=== PATIENT | female | born 1985 | race African-American/Black ===

== ENCOUNTER 2018-07-14 15:22 | Day surgery (SDC) | payer OTHER ==
[2018-07-14] MEDS ORDERED: Lactated Ringer's 1,000 ML IV SCH (16:15)
--- NOTE | 2018-07-14 16:26 | HP ---
DATE OF SERVICE: 07/14/2018 TIME OF EVALUATION: 15:50 LOCATION: LDR in bed #6. This patient has a full handwritten H&P in the physical chart as well, this dictation is secondary. CHIEF COMPLAINT: Vaginal bleeding last p.m. This is a patient of Dr. Nam Gustafson. The patient was seen first in the [facility] by Dr. Talha Guajardo who evaluated the mayank ent and felt that she was stable for labor monitoring here. She was examined transvaginally by Dr. Windy romero and was closed. HISTORY OF PRESENT ILLNESS: This is a 33-year-old -[place] African female 3, para 2 with no history, and no history of previa by her report, who states that she passed some clots last night about coin size She had some cramping and irritability last night and again today. She also states that she had an episode of vaginal bleeding today with a small clot past as well. She denies recent sex, trauma, or any other medical condition. Her EGA is 33 weeks and 2 days. Her EDC is 12/2017. REVIEW OF SYSTEMS: Complete review of systems was checked and is otherwise negative unless specified in the HPI. The only pertinent positive not related to the is that she has a history of d epression on medication. OB HISTORY: She has had 2 term vaginal deliveries. PAST MEDICAL HISTORY: Chronic headaches and "depression." MEDICATIONS: Patient states that she takes sertraline, but she is not sure if that is the actual nam e of the medicine. PAST MEDICAL HISTORY: Also negative for diabetes or asthma. PAST SURGICAL HISTORY: Negative. ALLERGIES: None. SOCIAL HISTORY: Significant for tobacco only. PHYSICAL EXAMINATION: VITAL SIGNS: Her blood pressure is 95/59, pulse is 90 and heart tones are in the 140s. She is afebrile. GENERAL: Clinically, she is in no acute distress. GENITOURINARY: The uterus is soft and nontender. On cervical exam, she is closed, but slightly effa vita with an effacement of about 30%, but the baby still at -2 station. There is no active bleeding n oted, but there is some old blood in the perineal area. There is no evidence of rupture of membranes on exam. On monitor, heart tones are reactive with moderate variability and accelerations. There are no pathological decelerations. There is uterine irritability, but no distinct contraction patter n. ASSESSMENT: This is a 34-year-old -[place] African 3, para 2 with 2 prior vaginal deliveries who is at 33 weeks and 2 days with probable small marginal placental separation presenting of vagina l bleeding. PLAN: 1. Check Rh type. The patient has an Rh positive blood type, confirmed by the record. 2. We will give her IV fluid hydration. 3. I have ordered an OB ultrasound for estimated weight, EGA confirmation, and cervical length . 4. We will continue with monitor for now. 5. If there is evidence of severe abruption or progressive abruption pattern, or evidence of labor, we will administer corticosteroids for lung maturity. 6. I have discussed corticosteroid with her, but as she is not currently laboring, as her cervix is closed, I have decided to hold off at this time. 7. We will likely do prolonged observation in labor and delivery with a plan to discharge her home w hen she is clinically stable.
--- NOTE | 2018-07-14 16:41 | PDOC.EVN ---
Event Note - Event Note Event Note: Sono follow up: Placenta posterior, normal DAMON, EFW 2021 grams; cervix 4cm; breech
[2018-07-14 16:53] VITALS: BMI 23.5
--- NOTE | 2018-07-14 17:03 | PDOC.EVN ---
Event Note - Event Note Event Note: ADDENDUM: record review states HX ampetamine use in past, although I asked her specifically and she denied it. I will order a utox for record.
--- NOTE | 2018-07-14 18:09 | ULT ---
OB ULTRASOUND 07/14/18 HISTORY: 33 week . Patient is experiencing vaginal bleeding. COMPARISON: Not available. FINDINGS: There is a single intrauterine gestation in breech presentation. Cardiac doppler demonstrates h eart tones with a heart rate of 160 beats per minute. The placenta is located posteriorly and i n the fundus without evidence of placenta previa. Amniotic fluid index is at the upper limits of norm al to borderline enlarged at 23 cm. The cervical length measures 4.08 cm. MEASUREMENTS: Biparietal diameter 8.18 cm 32 weeks, 6 days Head circumference 30.01 cm 33 weeks, 2 days Abdominal circumference 28.76 cm 32 weeks, 5 days Femur length 6.21 cm 32 weeks, 1 day The estimated gestational age by ultrasound is 32 weeks and 6 days with an NATHAN on 09/02/18. Gestational by the last menstrual period is 33 weeks and 2 days. The estimated weight by ultras ound is 2020 grams (4 lb. 7 oz.). This represents the 24th percentile for weight. Definite four chamber heart is unable to be delineated on the provided images. Cerebellum is not well visualized due to ossification of head structures and positioning of the head. Urinary b ladder is distended and has a normal appearance. Remaining anatomical structures are not well e valuated on this exam. No obvious anomalies are seen on the provided images. IMPRESSION: 1. Single intrauterine gestation in breech presentation with heart tones documented. Gesta tional age by ultrasound is 32 weeks and 6 days with NATHAN on 09/02/18. 2. The amniotic fluid index is at the upper limits of normal measuring 23.1 cm. 3. Limited evaluation of the anatomical structures on this exam. 4. Placenta is located posteriorly and fundally. No retroplacental hemorrhage is present. There are no findings to suggest placenta previa. POS: [facility]
--- NOTE | 2018-07-14 19:10 | PDOC.EVN ---
Event Note - Event Note Event Note: FHTs reactive, and no contractions. OK for discharge. Awaiting urine tox screen but still says "uncollected". Patient is "refusing to void". I suspect she may be concealing illicit substance use, although she is A&O. Prebatal record already states positive use of ampetamines. If not voiding, I will send home as no evidence of PTL at this time, and no further VB. Ampetamine use already documented in record.
[2018-07-14 20:50] LABS: Amphetamine Not Detected (NotDetected); Barbiturates Screen Not Detected (NotDetected); Benzodiazepine Screen Not Detected (NotDetected); Cocaine Metabolite Screen Not Detected (NotDetected); Medtox Control Line Valid? VALID (VALID); Medtox Reader # READER 1; Methadone Not Detected (NotDetected); Methamphetamine Not Detected (NotDetected); Opiate Screen Not Detected (NotDetected); Oxycodone Screen Not Detected (NotDetected); Phencyclidine (PCP) Not Detected (NotDetected); THC/Cannabinoid Screen Not Detected (NotDetected); Tricyclic Screen Not Detected (NotDetected)
--- NOTE | 2018-07-14 21:46 | PDOC.EVN ---
Event Note - Event Note Event Note: Post discharge note: Lab follow up after release: The patient did leave a urine sample pre-[facility]. Lab check now revealed no illicit substances (clean).
== END 2018-07-14 20:21 | disposition home or self-care (01) ==
LOC: L&D/OP 15:22
PROVIDERS: ATTEND Family Medicine
DX: O46.93 Antepartum hemorrhage, unspecified, third trimester (principal); O99.89 Other specified diseases and conditions complicating pregnancy, childbirth and the puerperium; R51 Headache; Z87.891 Personal history of nicotine dependence; Z3A.33 33 weeks gestation of pregnancy
CPT/HCPCS: 76805; 80306; 96360; 96361; 99284

== ENCOUNTER 2018-08-09 23:48 | Day surgery (SDC) | payer OTHER ==
[2018-08-10 00:12] VITALS: BP 109/71; TEMP 98.5; BMI 21.9
[2018-08-10] MEDS ORDERED: Morphine 10 MG/ML VIAL IM SCH ×2 (00:45)
[2018-08-10] MEDS ORDERED: Ondansetron ODT 8 MG TAB SL SCH (00:45)
--- NOTE | 2018-08-10 03:57 | PRG ---
DATE OF SERVICE: 08/10/2018 OB ER ENCOUNTER PRIMARY OB: Dr. Inder Gustafson. CHIEF COMPLAINT: Pelvic pain. HISTORY OF PRESENT ILLNESS: Patient is a 33-year-old female with an intrauterine at 37 weeks, who is presenting with a two-day onset of pelvic pain. Patient reports that she on Wednesday, horse got loose and she was scared the horse and ran away suddenly. Since that time, patient has be en having sharp pelvic pain, worse with activity and movement such as rolling in bed, walking, liftin g. She reports some mild contractions. Denies leakage of fluid or vaginal bleeding. She denies fev er, fall, headache, chest pain, shortness of breath, nausea, vomiting, diarrhea. She does report shruthi e constipation. She denies any new rashes, hip problems, knee problems, or muscle weakness. She den ies urinary urgency or frequency. PAST MEDICAL HISTORY: Depression. PAST SURGICAL HISTORY: Negative. SOCIAL HISTORY: She has a history of drug abuse early prior to the and a positive drug scr een at her first visit with a subsequent negative screen. Patient denies any use since. Patient hair s report a positive smoking history. Denies alcohol use. ALLERGIES: No known drug allergies. MEDICATIONS: vitamins. OB LABS: Blood type is B positive, antibody screen is negative. She is rubella immune, RPR is nonre active in the first trimester. Hepatitis B surface antigen is negative in the first trimester HIV is nonreactive in the first trimester. Hepatitis panel is negative. Sickle cell screen is negative. GC and chlamydia are negative. REVIEW OF SYSTEMS: Per HPI. PHYSICAL EXAMINATION: VITAL SIGNS: Blood pressure 102/55, heart rate of 85, respiratory rate 18, temperature 98.5. GENERAL: She appears to be in no acute distress. She is alert and oriented, cooperative, and pleasa nt to interact with. HEENT: Head is normocephalic, atraumatic. LUNGS: Clear to auscultation bilaterally. HEART: Regular rate and rhythm. ABDOMEN: Tender to palpation with deviation of the uterus. Cervical exam was attempted, but not evaristo erated per nursing staff. Nurse was able to palpate, these are believed to have cervix is thick and very posterior. EXTREMITIES: Nontender, nonedematous. heart tracing performed for pelvic pain and noted to be baseline in the 130s with moderate long -term variability, positive 15 x 15 accelerations, no decelerations. She has some irritability. ___ __ tocometer with contractions about every 7 to 15 minutes. ASSESSMENT AND PLAN: The patient is a 33-year-old G3, P2 female with an intrauterine at 37 weeks with musculoskeletal pains of . I have explained to the patient this ligament pain t chang painful is not dangerous to the itself. I will be given her 8 mg of morphine IM for temporary pain relief as well as prescription for Tylenol No.3 #6 to go home with patient does have a follow up with Dr. Gustafson tomorrow morning, which she has been encouraged to keep.
== END 2018-08-10 02:36 | disposition home or self-care (01) ==
LOC: L&D/OP 23:48
PROVIDERS: ATTEND Family Medicine
DX: O99.89 Other specified diseases and conditions complicating pregnancy, childbirth and the puerperium (principal); R10.2 Pelvic and perineal pain; Z87.891 Personal history of nicotine dependence; Z3A.37 37 weeks gestation of pregnancy
CPT/HCPCS: 96360; 99283; J2270

== ENCOUNTER 2018-08-23 00:05 | Inpatient (IN) | payer OTHER ==
[2018-08-25] MEDS ORDERED: Diphenoxylate HCl/Atropine Tablet PO PRN (20:13)
[2018-08-25] MEDS ORDERED: Ibuprofen 800 MG TAB PO PRN (20:13)
[2018-08-25] MEDS ORDERED: Ondansetron PF 4 MG/2 ML Vial IVP PRN (20:13)
[2018-08-25] MEDS ORDERED: NS / Oxytocin 40 units/1000ml 1,000 ML IV PRN (20:13)
[2018-08-25] MEDS ORDERED: NS w/ Oxytocin 10 units 500 ML IV SCH ×2 (20:13)
[2018-08-25] MEDS ORDERED: HYDROcodone/Acetaminophen 5/325 mg Tablet PO PRN (20:13)
[2018-08-25] MEDS ORDERED: Methylergonovine 0.2 MG/ML VIAL IM PRN (20:13)
[2018-08-25] MEDS ORDERED: Lidocaine 1% (PF) 30 ML VIAL SC PRN (20:13)
[2018-08-25] MEDS ORDERED: Carboprost 250 MCG/ML AMP IM PRN (20:13)
[2018-08-25] MEDS ORDERED: Misoprostol 200 MCG TAB PR PRN (20:13)
[2018-08-25] MEDS: Lactated Ringer's 1,000 ML IV SCH (20:15)
[2018-08-25 20:42] VITALS: BMI 22.7
[2018-08-25 20:42] LABS: Mean Corpuscular HGB CONC 35.1 g/dL (32.0-36.0); Mean Corpuscular Hemoglobin 32.2 pg (27.0-31.0); Mean Corpuscular Volume 91.8 fL (78.0-98.0); Mean Platelet Volume 8.7 fL (7.4-10.4); Platelet Count 173 thou/uL (130-400); RBC Distribution Width 12.2 % (11.5-14.5); Red Blood Cell (RBC) Count 3.09 mill/uL (4.20-5.40); White Blood Cell (WBC) Count 9.6 thou/uL (4.8-10.8)
[2018-08-25 21:17] LABS: Syphilis Antibody Nonreactive (Nonreactive); Syphilis Antibody Index 0.08 S/CO (<1.00 Non-Reactive)
[2018-08-25 21:27] LABS: Amphetamine Not Detected (NotDetected); Barbiturates Screen Not Detected (NotDetected); Benzodiazepine Screen Not Detected (NotDetected); Cocaine Metabolite Screen Not Detected (NotDetected); Medtox Control Line Valid? VALID (VALID); Medtox Reader # READER 1; Methadone Not Detected (NotDetected); Methamphetamine Not Detected (NotDetected); Opiate Screen Not Detected (NotDetected); Oxycodone Screen Not Detected (NotDetected); Phencyclidine (PCP) Not Detected (NotDetected); THC/Cannabinoid Screen Not Detected (NotDetected); Tricyclic Screen Not Detected (NotDetected)
[2018-08-25 22:49] LABS: HBSAg Index 0.23 S/CO (0-0.99); Hep B Surf Ag Non-Reactive S/CO (NonReactive)
[2018-08-25] MEDS: Misoprostol 100 MCG TAB PO SCH (23:00)
[2018-08-26] MEDS: Butorphanol Tartrate 1 MG/ML VIAL SLOW IVP PRN ×2 (02:47→10:48)
[2018-08-26] MEDS ORDERED: Misoprostol 100 MCG TAB ONE (06:09)
[2018-08-26] MEDS: Misoprostol 100 MCG TAB PO SCH ×2 (06:14→10:14)
[2018-08-26] MEDS ORDERED: Misoprostol 100 MCG TAB PO SCH (06:15)
[2018-08-26] MEDS ORDERED: Penicillin G Potassium 5 MILL.UNITS VIAL ONE (07:00)
[2018-08-26] MEDS ORDERED: Penicillin G Potassium 5 MILL.UNITS in Sodium Chloride 0.9% 100 ML IVPB SCH (08:45)
[2018-08-26] MEDS ORDERED: Penicillin G Potassium 2.5 MILL.UNITS in Sodium Chloride 0.9% 50 ML IVPB SCH (08:45)
[2018-08-26] MEDS: Lactated Ringer's 1,000 ML IV SCH ×3 (09:40→17:45)
[2018-08-26] MEDS ORDERED: Bupivacaine 0.25% HCL 30 ML VIAL ONE (11:11)
[2018-08-26] MEDS ORDERED: Lidocaine 2% MPF 10 ML AMP (For Epidural Use) ONE (11:11)
[2018-08-26] MEDS ORDERED: ePHEDrine/0.9% NaCl/PF SYRINGE 50 mg/10 ml ONE (11:11)
[2018-08-26] MEDS ORDERED: Ketorolac Tromethamine 30 MG/ML VIAL ONE ×2 (11:21→22:14)
[2018-08-26] MEDS ORDERED: diphenhydrAMINE 50 MG/ML VIAL ONE ×2 (11:21→22:02)
[2018-08-26] MEDS ORDERED: Ondansetron PF 4 MG/2 ML Vial ONE ×2 (11:21→21:27)
[2018-08-26] MEDS ORDERED: Dexamethasone 20 MG/5 ML VIAL ONE (11:21)
[2018-08-26] MEDS: Penicillin G 2.5 MILL.units 2.5 MILL.UNITS in Premix Bag 1 BAG IVPB SCH ×2 (13:09→16:40)
[2018-08-26] MEDS ORDERED: Fentanyl 4 mcg/Bup 0.1% Cadd 100 ML ONE (13:46)
[2018-08-26] MEDS ORDERED: diphenhydrAMINE 50 MG/ML VIAL IVP PRN ×3 (14:29→22:19)
[2018-08-26] MEDS ORDERED: Promethazine HCl 25 MG/ML VIAL IM PRN ×3 (14:29→22:19)
[2018-08-26] MEDS ORDERED: Ondansetron PF 4 MG/2 ML Vial IVP PRN ×3 (14:29→22:19)
[2018-08-26] MEDS ORDERED: Eucerin (Mineral Oil/Petrolatum,White) 30 gm Jar TOP PRN ×3 (14:29→22:19)
[2018-08-26] MEDS ORDERED: Lactated Ringer's 500 ML IV PRN ×2 (14:29→14:30)
[2018-08-26] MEDS ORDERED: Acetaminophen 325 MG TAB PO PRN ×2 (14:29→14:30)
[2018-08-26] MEDS ORDERED: Naloxone HCl 0.4 mg/ml Vial IVP PRN ×6 (14:29→22:19)
[2018-08-26] MEDS ORDERED: ePHEDrine/0.9% NaCl/PF SYRINGE 50 mg/10 ml SLOW IVP PRN ×2 (14:29→14:30)
[2018-08-26] MEDS ORDERED: Communication Order-Pharmacy FS SCH ×3 (14:30→22:30)
[2018-08-26] MEDS ORDERED: Fentanyl 4 mcg/Bupivacaine 0.1% Cassette 100 ML EPIDURAL SCH (14:30)
[2018-08-26] MEDS ORDERED: CEFAZOLIN 2 GM/50 ML BAG ONE (21:22)
[2018-08-26] MEDS ORDERED: Bicitra 30 ML UDCUP ONE (21:22)
[2018-08-26] MEDS ORDERED: Oxytocin 10 UNITS/ML VIAL ONE (21:26)
[2018-08-26] MEDS ORDERED: Lidocaine 2% 10 ML INJ ONE (21:26)
[2018-08-26] MEDS ORDERED: Dexamethasone 4 mg/ml Vial ONE (21:27)
[2018-08-26] MEDS ORDERED: Morphine PF 1 MG/ML SYR ONE (21:28)
[2018-08-26] MEDS ORDERED: CEFAZOLIN 2 GM/50 ML BAG IVPB SCH (21:45)
[2018-08-26] MEDS ORDERED: Bicitra 30 ML UDCUP PO SCH (21:45)
[2018-08-26] MEDS ORDERED: L&D-Morphine 4 MG/ML VIAL SLOW IVP PRN (22:19)
[2018-08-26] MEDS ORDERED: Ondansetron HCl/PF 4 MG/2 ML Vial IVP PRN (22:19)
[2018-08-26] MEDS ORDERED: Promethazine HCl 25 MG SUPP PR PRN (22:19)
[2018-08-26] MEDS ORDERED: HYDROmorphone 2 MG/ML VIAL SLOW IVP PRN (22:19)
[2018-08-26] MEDS ORDERED: Naloxone HCl 0.4 mg/ml Vial IV PRN (22:19)
[2018-08-26] MEDS ORDERED: Ketorolac Tromethamine 30 MG/ML VIAL IVP SCH (22:30)
--- NOTE | 2018-08-26 22:40 | PDOC.OPDEL ---
OB Operative/Delivery Note Delivery Dr/Surgeon: Dr. Gustafson Assist: Dr. Ronquillo Pre-Delivery Diagnosis: elective induction Procedure/Post Delivery Dx: primary low transverse CS Weeks gestation: 39 (39w3d) Anesthesia: epidural - Findings A Sex: female - 1 min: 8 - 5 min: 9 - Additional Findings/Plan Placenta delivered: manual removal findings: low transverse hysterotomy without extension, normal uterus Estimated blood loss: 900 mL Compilations/Other Findings: Preoperative Diagnosis: 1)Term intrauterine 2)Non-reassuring heart tones with failure to progress 3)GBS positive Postoperative Diagnosis: 1)Term intrauterine , delivered 2)Non-reassuring heart tones with failure to progress 3)GBS positive s/p 3 doses of penicillin Anesthesia: epidural Indications: The patient is a 33 year old female at 39.3 weeks gestation who presents for a primary due to non-reassuring heart tones. Procedure in Detail: After risks, benefits, and alternatives were explained to the patient, she gave informed consent. Pre-operative antibiotics included Cefazolin 2 gram IV. The patient was taken to the operating room and spinal anesthesia was initiated. She was placed in the supine position with a left tilt and prepped and draped in usual sterile fashion. A Pfannenstiel incision was made with a scalpel and carried down to the level of the fascia which was sharply nicked. The fascial cut was extended bilaterally with Jose scissors. The inferior and superior edges of the cut fascial edges were elevated with Jerome clamps and the underlying rectus muscles were sharply and bluntly dissected free. The recti were divided digitally and retracted manually. The peritoneum was entered bluntly and retracted manually. Bladder blade was placed. A low transverse score was made with the scalpel and the uterus was entered in the midline bluntly. Clear fluid was seen. The hysterotomy was extended manually. The was noted to be vertex with nuchal cord x1, which was reduced. The was easily delivered by fundal pressure. Mouth and nares were bulb suctioned. Cord clamped and cut after 60 second delayed cord clamping and grossly normal female was handed to waiting nurse. Cord blood was obtained. Placenta was manually extracted, found to be intact with 3 vessel cord and sent for pathology. The uterus was externalized and the endometrium was curetted with a dry lap. The bladder blade was replaced and the uterus was closed with a running locking 0-Vicryl followed by 3 figure-of- eight sutures with 0-vicryl for hemostasis. Following this hemostasis was noted. The abdomen was irrigated with saline and suctioned free of clots. Seprafilm was placed on the anterior aspect of the uterus. The uterus was internalized and the hysterotomy was again noted to be hemostatic. The peritoneum was closed with running, non-locking 3-0 vicryl suture. The rectus was inspected and a few small bleeders were cauterized. The fascia was closed with a running non-locking 0-PDS suture. The subcutaneous tissue was irrigated and there were no bleeders. The subcutaneous tissue was approximated with simple interrupted 3-0 vicryl sutures. The skin was approximated with jose and a pressure dressing was placed. All counts were correct. The patient tolerated the procedure well and was taken to the recovery room in stable condition. Time/Date of delivery: 2155 on 08/26/18 Estimated Blood Loss: 900 ml, QBL pending Complications: None Specimens: Cord blood sent to lab for blood type Findings: Grossly normal female infant with apgars of 8 and 9 at 1 and 5 minutes respectively. Grossly normal placenta with 3 vessel cord sent for pathology. Drains: Newman to gravity draining clear urine Post delivery plan: routine recovery <Zara Ronquillo - Last Filed: 08/26/18 22:43> - Additional Findings/Plan Estimated blood loss: 800 mL <Inder Gustafson - Last Filed: 08/28/18 11:16>
[2018-08-26] MEDS ORDERED: Meperidine HCl/PF 25 MG/ML VIAL ONE (23:26)
[2018-08-26] MEDS: Meperidine HCl/PF 25 MG/ML VIAL SLOW IVP PRN (23:28)
[2018-08-27] MEDS ORDERED: Morphine 4 MG/ML VIAL ONE (00:07)
[2018-08-27] MEDS ORDERED: Morphine 4 MG/ML VIAL SLOW IVP PRN (00:09)
[2018-08-27] MEDS ORDERED: diphenhydrAMINE 25 MG CAP PO PRN (00:21)
[2018-08-27] MEDS ORDERED: Bisacodyl 10 MG SUPP PR PRN (00:21)
[2018-08-27] MEDS ORDERED: Meperidine HCl/PF 25 MG/ML VIAL IM PRN (00:21)
[2018-08-27] MEDS ORDERED: Ondansetron PF 4 MG/2 ML Vial IVP PRN (00:21)
[2018-08-27] MEDS ORDERED: NS / Oxytocin 40 units/1000ml 1,000 ML IV SCH (00:21)
[2018-08-27] MEDS ORDERED: HYDROcodone/Acetaminophen 5/325 mg Tablet PO PRN (00:21)
[2018-08-27] MEDS ORDERED: Meperidine HCl/PF 25 MG/ML VIAL ONE (00:27)
[2018-08-27] MEDS: Meperidine HCl/PF 25 MG/ML VIAL SLOW IVP PRN (00:29)
[2018-08-27] MEDS: Penicillin G 2.5 MILL.units 2.5 MILL.UNITS in Premix Bag 1 BAG IVPB SCH ×2 (02:11→02:12)
[2018-08-27] MEDS: Lactated Ringer's 1,000 ML IV SCH ×2 (02:12→05:49)
[2018-08-27] MEDS: Ketorolac Tromethamine 30 MG/ML VIAL IVP PRN ×2 (05:50→12:02)
[2018-08-27 06:21] LABS: Hemoglobin 7.5 g/dL (12.0-16.0); Mean Corpuscular HGB CONC 34.6 g/dL (32.0-36.0); Mean Corpuscular Volume 92.7 fL (78.0-98.0); Platelet Count 150 thou/uL (130-400); RBC Distribution Width 12.1 % (11.5-14.5); Red Blood Cell (RBC) Count 2.35 mill/uL (4.20-5.40); White Blood Cell (WBC) Count 14.5 thou/uL (4.8-10.8)
[2018-08-27] MEDS ORDERED: Lactated Ringer's 1,000 ML IV SCH (06:30)
[2018-08-27] MEDS ORDERED: Adacel (T-DAP) 0.5 ML SYRINGE IM ONE (09:00)
[2018-08-27] MEDS: Simethicone Chewable 80 MG TAB PO PRN ×2 (09:06→20:28)
[2018-08-27] MEDS: Docusate Calcium (SURFAK) 240 MG CAP PO SCH ×2 (09:06→20:28)
[2018-08-27] MEDS: Prenatal Vitamin 1 TAB PO SCH (09:06)
[2018-08-27] MEDS: HYDROcodone/Acetaminophen 5/325 mg Tablet PO PRN ×2 (16:06→20:28)
[2018-08-27] MEDS: Ibuprofen 800 MG TAB PO SCH (20:28)
[2018-08-28] MEDS: Ibuprofen 800 MG TAB PO SCH ×3 (05:55→22:08)
[2018-08-28] MEDS: HYDROcodone/Acetaminophen 5/325 mg Tablet PO PRN ×4 (05:55→23:54)
[2018-08-28] MEDS ORDERED: Ibuprofen 800 MG TAB PO SCH (06:00)
[2018-08-28] MEDS: Docusate Calcium (SURFAK) 240 MG CAP PO SCH ×2 (09:00→22:07)
[2018-08-28] MEDS: Prenatal Vitamin 1 TAB PO SCH (09:01)
[2018-08-28] MEDS: Simethicone Chewable 80 MG TAB PO PRN (19:35)
[2018-08-29] MEDS: HYDROcodone/Acetaminophen 5/325 mg Tablet PO PRN ×4 (06:11→20:46)
[2018-08-29] MEDS: Ibuprofen 800 MG TAB PO SCH ×3 (06:11→20:44)
[2018-08-29 08:22] VITALS: BP 100/61; TEMP 98.5
[2018-08-29] MEDS: Prenatal Vitamin 1 TAB PO SCH (10:02)
[2018-08-29] MEDS: Docusate Calcium (SURFAK) 240 MG CAP PO SCH (10:02)
== END 2018-08-29 21:00 | disposition home or self-care (01) | DRG 787 ==
LOC: L&D 08-25 19:50 → 3SW 08-27 01:13
PROVIDERS: ADMIT Family Medicine; ATTEND Family Medicine
PROC: 10D00Z1 Extraction of Products of Conception, Low, Open Approach (ICD-10-PCS; principal; 2018-08-26)
DX: O76 Abnormality in fetal heart rate and rhythm complicating labor and delivery (principal); O98.82 Other maternal infectious and parasitic diseases complicating childbirth; O64.8XX0 Obstructed labor due to other malposition and malpresentation, not applicable or unspecified; B95.1 Streptococcus, group B, as the cause of diseases classified elsewhere; Z3A.39 39 weeks gestation of pregnancy; Z37.0 Single live birth
CPT/HCPCS: 36415; 51702; 76815; 80053; 80306; 82553; 84484; 85025; 85027; 86780; 86850; 86900; 86901; 87340; 88307; 93005; 94760; J0595; J1100; J1200; J1885; J2001; J2175; J2270; J2274; J2405; J2540; J2590; J7050; S0020

== ENCOUNTER 2018-08-23 20:42 | Day surgery (SDC) | payer OTHER ==
[2018-08-23 21:17] VITALS: BP 103/59; TEMP 97.7; BMI 23.5
--- NOTE | 2018-08-24 06:08 | SS ---
DATE OF ADMISSION: 08/23/2018 DATE OF DISCHARGE: 08/23/2018 LABOR AND DELIVERY TRIAGE NOTE REGULAR PHYSICIAN: Inder Gustafson MD. EVALUATING PHYSICIAN: Asa Vieyra MD. CHIEF COMPLAINT: Contractions at home. HISTORY OF PRESENT ILLNESS: Ms. Dumont is a 33-year-old black G3, P2-0-0-2 with a reported estimated date of confinement of 08/30/2018, who presents complaining of contractions throughout the day at home. She denies rupture of membranes or vaginal bleeding. When I asked how often they were occurring, she said she has not timed them. Her care has reportedly been uncomplicated with Dr. Gustafson. PAST OBSTETRICAL HISTORY: Includes 2 vaginal deliveries at term. PAST MEDICAL HISTORY: None. PAST SURGICAL HISTORY: None. CURRENT MEDICATIONS: vitamins. ALLERGIES: NO KNOWN ALLERGIES. SOCIAL HISTORY: She smokes a half a pack of cigarettes per day. She denies drug use. REVIEW OF SYSTEMS: Denies nausea, vomiting, fevers, chills, vaginal bleeding, or ruptured membranes. PHYSICAL EXAMINATION: VITAL SIGNS: Stable and she is afebrile in triage. ABDOMEN: Soft, nontender, and gravid. PELVIC: On pelvic examination by the labor nurse, her cervix is 1 cm dilated, 60% effaced with a vertex to -2 position. heart rate tracing is reassuring. There are no decelerations. Irregular contractions were seen. ASSESSMENT: 1. 39-week intrauterine . 2. No evidence of active labor at this time. PLAN: The patient will be discharged to home with labor instructions. She was told to keep herself well hydrated at home. Dr. Gustafson had been notified previously of this patient by the labor and delivery nurses. Job ID: [id number]
== END 2018-08-23 21:50 | disposition home or self-care (01) ==
LOC: L&D/OP 20:42
PROVIDERS: ATTEND Family Medicine
DX: O47.1 False labor at or after 37 completed weeks of gestation (principal); O99.333 Smoking (tobacco) complicating pregnancy, third trimester; F17.210 Nicotine dependence, cigarettes, uncomplicated; Z3A.39 39 weeks gestation of pregnancy
CPT/HCPCS: 99282

== ENCOUNTER 2018-08-25 18:34 | Emergency (ER) | payer OTHER ==
[2018-08-25 19:08] LABS: #Eosinphils 0.1 thou/uL (0.0-0.7); #Lymphocytes 1.9 thou/uL (1.20-3.40); #Monocytes 0.6 thou/uL (0.11-0.59); #Neutrophils 7.5 thou/uL (1.40-6.50); %Basophils 0.2 % (0.0-1.0); %Eosinophils 0.9 % (0.0-10.0); %Lymphocytes 18.3 % (21.0-51.0); %Monocytes 5.7 % (0.0-10.0); %Neutrophils 74.8 % (42.0-75.0); Mean Corpuscular HGB CONC 35.2 g/dL (32.0-36.0); Mean Corpuscular Hemoglobin 32.3 pg (27.0-31.0); Mean Corpuscular Volume 91.9 fL (78.0-98.0); Mean Platelet Volume 8.4 fL (7.4-10.4); Platelet Count 175 thou/uL (130-400); RBC Distribution Width 12.1 % (11.5-14.5); White Blood Cell (WBC) Count 10.1 thou/uL (4.8-10.8)
[2018-08-25 19:32] LABS: ALT (SGPT) 8 U/L (8-55); AST (SGOT) 11 U/L (5-34); Albumin 3.1 g/dL (3.5-5.0); Alkaline Phosphatase 309 U/L (40-150); Anion Gap 9 mmol/L (10-20); BUN (Urea Nitrogen) 7 mg/dL (7.0-18.7); Bilirubin, Total 0.4 mg/dL (0.2-1.2); CK (CPK) 59 U/L (29-168); Calc. Creatinine Clearance 0 mL/min (70-130); Carbon Dioxide 24 mmol/L (22-29); Chloride 107 mmol/L (98-107); Estimated GFR-MDRD Greater than 90; Glucose 93 mg/dL (70-105); Potassium 3.6 mmol/L (3.5-5.1); Protein, Total 6.1 g/dL (6.0-8.3); Sodium 136 mmol/L (136-145)
[2018-08-25 19:37] LABS: Troponin I Less than 0.010 ng/mL (< 0.028)
== END 2018-08-25 19:55 | disposition home or self-care (01) ==
LOC: ERS 18:34
DX: O99.89 Other specified diseases and conditions complicating pregnancy, childbirth and the puerperium (principal); R07.89 Other chest pain; O99.343 Other mental disorders complicating pregnancy, third trimester; F32.9 Major depressive disorder, single episode, unspecified; F41.9 Anxiety disorder, unspecified; Z3A.39 39 weeks gestation of pregnancy
CPT/HCPCS: 80053; 82553; 84484; 85025; 93005; 94760

== ENCOUNTER 2018-09-05 14:02 | Observation (INO) | payer OTHER ==
[~2018-09-05 14:02] MED LIST: Iopamidol 370 76% 100 ML VIAL ONE
[2018-09-05 14:55] LABS: #Eosinphils 0.1 thou/uL (0.0-0.7); #Lymphocytes 2.1 thou/uL (1.20-3.40); #Monocytes 0.7 thou/uL (0.11-0.59); #Neutrophils 9.9 thou/uL (1.40-6.50); %Basophils 0.4 % (0.0-1.0); %Eosinophils 0.6 % (0.0-10.0); %Lymphocytes 16.2 % (21.0-51.0); %Monocytes 5.5 % (0.0-10.0); %Neutrophils 77.4 % (42.0-75.0); Hemoglobin 8.3 g/dL (12.0-16.0); Mean Corpuscular HGB CONC 32.5 g/dL (32.0-36.0); Mean Corpuscular Hemoglobin 30.2 pg (27.0-31.0); Mean Corpuscular Volume 92.9 fL (78.0-98.0); Mean Platelet Volume 6.7 fL (7.4-10.4); Platelet Count 403 thou/uL (130-400); RBC Distribution Width 12.1 % (11.5-14.5); Red Blood Cell (RBC) Count 2.76 mill/uL (4.20-5.40); White Blood Cell (WBC) Count 12.8 thou/uL (4.8-10.8)
[2018-09-05 15:17] LABS: ALT (SGPT) 12 U/L (8-55); AST (SGOT) 11 U/L (5-34); Albumin 3.2 g/dL (3.5-5.0); Alkaline Phosphatase 137 U/L (40-150); Anion Gap 11 mmol/L (10-20); BUN (Urea Nitrogen) 10 mg/dL (7.0-18.7); Bilirubin, Total 0.6 mg/dL (0.2-1.2); Calc. Creatinine Clearance 0 mL/min (70-130); Calcium 9.3 mg/dL (7.8-10.44); Carbon Dioxide 21 mmol/L (22-29); Chloride 110 mmol/L (98-107); Estimated GFR-MDRD Greater than 90; Globulin 3.6 g/dL (2.4-3.5); Glucose 85 mg/dL (70-105); Protein, Total 6.8 g/dL (6.0-8.3); Sodium 138 mmol/L (136-145)
[2018-09-05] MEDS ORDERED: Ondansetron PF 4 MG/2 ML Vial ONE (15:40)
[2018-09-05] MEDS ORDERED: Ketorolac Tromethamine 30 MG/ML VIAL ONE (15:40)
[2018-09-05] MEDS ORDERED: Acetaminophen 500 MG TAB ONE (16:09)
--- NOTE | 2018-09-05 16:54 | ULT ---
PELVIC ULTRASOUND: Date: 09/05/18 HISTORY: on 08/26/18. Post pain since this morning. COMPARISON: None. TECHNIQUE: Transabdominal imaging of the pelvis is performed. FINDINGS: Uterus is identified. Endometrium is slightly heterogeneous with a diameter of 1.5 cm. Overall, the u terus measures 8.1 x 15.1 x 10.5 cm. In the lower uterine segment, there is a hypoechoic structure me asuring 8.4 x 7.8 x 5.7 cm. Neither ovary is appreciated. No significant fluid or masses in either adnexa. IMPRESSION: 1. Enlarged uterus compatible with state. 2. Heterogeneous endometrial echotexture which may represent blood products. Correlate clinically fo r retained products of conception. 3. Hypoechoic focus in the lower uterine segment is incompletely evaluated. Postoperative hematoma o r seroma is a consideration. Other etiologies cannot be excluded. Further interrogation with CT may b e beneficial. CT should be performed with oral and IV contrast. POS: [facility]
[2018-09-05] MEDS ORDERED: cefTRIAXone\\ROCEPHIN 1 GM VIAL ONE (17:21)
[2018-09-05 17:41] LABS: Bilirubin Negative (Negative); Blood, Urine Negative (Negative); Clarity CLOUDY (Clear); Glucose, Urine (Dipstick) Negative (Negative); Leukocyte Moderate (Negative); Nitrite Negative (Negative); Protein, Urine (Dipstick) Negative (Neg-Trace); Specific Gravity, Urine 1.016 (1.002-1.036)
[2018-09-05 17:43] LABS: Bacteria/HPF Rare-Few HPF (None Seen); Hyaline Casts/LPF 4-6 HYALINE CAST LPF (0-3 Hyaline); Pathc Cast-AUWi Flag 1.16 (0-2.49); RBC/HPF 0-3 HPF (0-3); WBC/HPF 21-50 HPF (0-3)
[2018-09-05 17:48] LABS: Pregnancy Test - Urine (BHCG) POSITIVE (Negative); Pregu Control Background? CLEAR/WHITE (CLR/WHITE); Pregu Control Bar Appear? YES (CONTROL BAR); Specific Gravity 1.016 (1.002-1.036)
--- NOTE | 2018-09-05 18:41 | CT ---
ABDOMEN AND PELVIC CT SCAN WITH IV CONTRAST: HISTORY: A 33-year-old female with a history of abdominal pain and back pain which began this morning. Recent 1 week ago. FINDINGS: Linear parenchymal changes are noted in both lung bases, evidence for subsegmental atelectasis. Ther e is some minimal scattered free fluid throughout the abdomen and pelvis. The liver, gallbladder, pa ncreas, spleen, and adrenal glands are unremarkable. No overt renal calculus or acute obstruction . There is prominent enlargement of the uterus with some low-attenuation density within the endometr ial cavity, nonspecific, this certainly could represent some residual blood or residual products of c onception. There is a low-attenuation mass in the right lower pelvis measuring approximately 5.9 x 8.2 cm in siz e which corresponds to the hypoechoic mass which was described in the region of the lower uterine seg ment which was incompletely seen on the ultrasound study. Since neither right nor left ovary are dem onstrated, the possibility that this could represent an abnormally enlarged torsed right ovary is cer tainly a consideration. Other possibilities include that of a hematoma or other mass. In addition t o this focus, there is a smaller 2.5 cm diameter low-attenuation focus containing a central calcific or ossific focus approximately 1 cm in diameter. This is also in the right side of the pelvis, somew hat caudal to the larger low-attenuation mass described above. I am not certain as to the etiology o f this. Additionally on the left side of the pelvis, again I cannot separate this definitely from th e uterus. It measures approximately 3.5 cm in size and again is nonspecific. A normal-appearing isaac endix is seen. IMPRESSION: Enlarged uterus containing some low-attenuation density which could possibly represent blood or retai paula products of conception. Scattered intraperitoneal fluid higher than expected for typical ascites which could represent some partially hemorrhagic or other partially complicated fluid. Large, 5.9 x 8.2 cm diameter low-attenuation mass in the right adnexal region, I do not think that this is in the definite lower uterine segment, but I really could not separate it from the lower uterine segment. Given its appearance on prior ultrasound study, the possibility that this could represent an abnormal ly enlarged right ovary. A torsed right ovary is certainly a consideration. Two other abnormal low- attenuation foci, 1 in the right side of the pelvis somewhat caudal to this larger abnormal area cont aining a small focus of increased attenuation density, and a 2nd area of abnormal attenuation density to the left of midline. The etiology of these is uncertain. They could represent small hemorrhagic foci or other small post surgical changes. Findings were initially discussed with Dr. Tobar in the ER and then discussed with Dr. Coronado on the floor, BASTER HAND. CODE CR POS: [facility]
[2018-09-05] MEDS ORDERED: Ondansetron PF 4 MG/2 ML Vial IVP PRN (20:20)
[2018-09-05] MEDS: Lactated Ringer's 1,000 ML IV SCH (21:43)
[2018-09-05] MEDS: Zolpidem Tartrate 5 MG TAB PO PRN (21:43)
[2018-09-05] MEDS: metroNIDAZOLE 500 MG TAB PO SCH (21:43)
[2018-09-06] MEDS: Ibuprofen 800 MG TAB PO PRN ×3 (02:06→20:21)
[2018-09-06] MEDS ORDERED: traMADol HCl 50 MG TAB PO PRN (02:31)
[2018-09-06] MEDS: traMADol HCl 50 MG TAB PO PRN ×2 (02:41→16:23)
--- NOTE | 2018-09-06 04:20 | HP ---
ADMISSION PRIMARY RN CLINICAL RESOURCE: Dr. Inder Gustafson. CHIEF COMPLAINT: Pelvic pain, fever. HISTORY OF PRESENT ILLNESS: The patient is a 33-year-old female who is 10 days postop, status post a primary after a failed induction of labor. The patient reports that she has been having normal recovery until she woke up this morning in severe pain, this was severe enough that she has difficulty getting out of bed and attending to her children. The patient presented to the emergency room, was evaluated and there were concerns by the ER physician that the patient was experiencing endomyometritis and [facility]NER was consulted for evaluation. When coming to evaluate the patient, the patient gave the above history, confirmed the above history and reports that her pain since coming to the emergency room had improved after receiving an initial dose of IV pain medication. The patient reports that she has been feeling sick and just believes that something is not right given the level of pain that she is in. The patient denies any excessive bleeding. She denies drainage from her incision. PAST MEDICAL HISTORY: Negative. PAST SURGICAL HISTORY: Negative. ALLERGIES: NO KNOWN DRUG ALLERGIES. MEDICATIONS: vitamins and ibuprofen. SOCIAL HISTORY: The patient has a positive drug screen for methamphetamine during this . PHYSICAL EXAMINATION: VITAL SIGNS: Blood pressure 116/69, pulse is 69, temperature 100.4 with a prior temperature of 99.7, pain of 10/10. GENERAL: The patient appeared to be very uncomfortable, and appeared to be sick. She was, however, alert and oriented, cooperative, and pleasant to interact with. HEAD: Normocephalic, atraumatic. LUNGS: Clear to auscultation bilaterally. HEART: Regular rate and rhythm. ABDOMEN: Soft. Fundus was exquisitely tender. Her incision was also very tender with some minimal induration, though no erythema, no drainage. IMAGING DATA: Formal ultrasound shows a uterus with heterogeneous endometrium at 1.5 cm and uterus measuring 8.1 x 15.1 x 10.5 cm. Within the what appeared to be lower uterine segment, a hypoechoic structure measuring 8.4 x 7.8 x 5.7 cm. Either ovary was appreciated. On initial impression, this mass appeared to be a blood clot or a seroma with recommendations for CT scan for further evaluation. A CT scan was performed with this mass appearing to be in the posterior fossa and right gutter. The radiologist had some concern given that we could not see the ovaries that this could represent a torsed ovary that was swollen and edematous. LABORATORY DATA: Shows white count of 12.8, hemoglobin of 8.3, hematocrit 25.6, platelets 403,000 with neutrophils, left shift of 77.4%. Creatinine of 0.55, AST of 11, ALT of 12, sodium of 138, potassium 4.0. ASSESSMENT AND PLAN: The patient is a 33-year-old female, postop day 10 with pelvic pain, exquisite fundal tenderness, a mildly elevated white count and elevated temperature of a 100.4 on evaluation and history of previous 10 days prior to presentation for failure to progress. All of these signs point toward an endomyometritis, for which we would plan on treating with Rocephin 1 g every 24 hours and metronidazole 500 mg p.o. 3 times a day. By history, the patient's story is consistent with what could be an ovarian torsion. Reviewing the operative note, Dr. Gustafson did not comment on evaluating the ovaries, but did report that the uterus appeared normal and that the uterus was exteriorized. At the time of our evaluation, the patient reported that her pain was much, much better even though her last dose of pain medication was 3 to 5 hours previous. A diagnostic laparoscopy to evaluate for ovarian torsion was offered, though we did report that the ovary be torsed and swollen was then described, the chances of the ovary would remain viable is fairly low. Given the patient much improved pain and the patient distressed with surgical intervention, the patient has declined surgery at this time. Plan is to continue IV antibiotics for the next 24 to 48 hours and look for improvement on her fundal tenderness. Job ID: [id number]
[2018-09-06 06:25] LABS: Hemoglobin 7.5 g/dL (12.0-16.0); Mean Corpuscular HGB CONC 32.2 g/dL (32.0-36.0); Mean Corpuscular Volume 93.1 fL (78.0-98.0); Mean Platelet Volume 6.8 fL (7.4-10.4); Platelet Count 394 thou/uL (130-400); RBC Distribution Width 12.3 % (11.5-14.5); Red Blood Cell (RBC) Count 2.48 mill/uL (4.20-5.40); White Blood Cell (WBC) Count 11.5 thou/uL (4.8-10.8)
--- NOTE | 2018-09-06 07:34 | PRG ---
DATE OF SERVICE: 09/06/2018 SUBJECTIVE: The patient is a 33-year-old female, who is postop day 11, hospital day 2, who was admitted yesterday for fever, abdominal/pelvic pain, and a pelvic mass. She is being treated presumably for endomyometritis. This morning, the patient reports that she is feeling much better. Her pain is improved significantly. OBJECTIVE: VITAL SIGNS: Blood pressure 97/61, temperature 98.7, pulse of 60, saturating 96% on room air, and T-max was 100.8 at 0200 hours this morning. GENERAL: The patient appears to be in no acute distress. She is resting comfortably with a heating pad. ABDOMEN: Much less tender this morning than on admission yesterday, off pain medication. LABORATORY DATA: CBC shows a white count of 11.5, hemoglobin of 7.5, hematocrit 23.1, and platelets of 394,000. ASSESSMENT AND PLAN: The patient is postop day 11, hospital day 2, for presumed endomyometritis, on Rocephin and Flagyl. The patient's pain has improved significantly. I will continue to treat until she is afebrile for 48 hours. This pelvic mass, there was some concern by Radiology that it could represent a large swollen ovary, torsed. The patient at this time again is reporting the pain is much improved. She did decline the invitation for diagnostic laparoscopy yesterday on arrival given the improvement of her pain by the time we saw her. Job ID: [id number]
[2018-09-06] MEDS: metroNIDAZOLE 500 MG TAB PO SCH ×3 (10:20→22:14)
[2018-09-06] MEDS: Lactated Ringer's 1,000 ML IV SCH (10:22)
[2018-09-06] MEDS: cefTRIAXone\\ROCEPHIN 1 GM in Sodium Chloride 0.9% 100 ML IVPB SCH (17:15)
[2018-09-06] MEDS ORDERED: Docusate Calcium (SURFAK) 240 MG CAP PO PRN (17:54)
[2018-09-06] MEDS ORDERED: Polyethylene Glycol 3350 17 GM Packet PO PRN (17:54)
[2018-09-06] MEDS: Zolpidem Tartrate 5 MG TAB PO PRN (20:29)
[2018-09-06] MEDS ORDERED: Simethicone Chewable 80 MG TAB PO SCH (21:00)
[2018-09-06] MEDS ORDERED: Morphine 4 MG/ML VIAL SLOW IVP PRN (21:00)
--- NOTE | 2018-09-06 21:09 | PDOC.EVN ---
Event Note - Event Note Event Note: S: I was called to evaluate the patient after she started having an increase in pain after having a relatively pain-free day. She has not gotten out of bed except to use the restroom. She reports the pain as similar to menstrual cramps and intermittent. Pain mostly periumbilical and LLQ>RLQ and up to her epigastrum. Had ultram and ibuprofen but felt it did not help much. Has had only 1 BM in 11 days. O: AFVSS Gen: appears uncomfortable, but no acute distress Abd - Soft, no guarding, no rebound but diffusely TTP. A/P: The etiology of her pain is unclear. It is possibly due to constipation and gas given her description but we cannot rule out torsion or other acute process. I discussed the option of proceeding with a diagnostic laparoscopy, as had been previously discussed on admission, to assess for causes of her pain but she still declines at this time. She does not want surgery. I reiterated that if she has an ovarian torsion, waiting could result in loss of that ovary and she understands. She would like to try a dose of morphine to see if it takes the edge off and let her get rest. She agrees to also taking simethicone in case the pain is related to gas, in addition to her Miralax for constipation. I have discussed the importance of the patient ambulating with her nurse. Will continue to monitor.
[2018-09-06] MEDS ORDERED: Morphine 2 MG/ML SYRINGE SLOW IVP PRN (21:13)
[2018-09-06] MEDS ORDERED: Simethicone Chewable 80 MG TAB PO PRN (22:00)
[2018-09-07] MEDS: Lactated Ringer's 1,000 ML IV SCH ×2 (00:25→11:24)
[2018-09-07] MEDS: traMADol HCl 50 MG TAB PO PRN ×3 (05:16→16:05)
[2018-09-07 06:13] LABS: #Eosinphils 0.1 thou/uL (0.0-0.7); #Lymphocytes 2.4 thou/uL (1.20-3.40); #Monocytes 0.8 thou/uL (0.11-0.59); #Neutrophils 7.1 thou/uL (1.40-6.50); %Basophils 0.3 % (0.0-1.0); %Eosinophils 0.6 % (0.0-10.0); %Lymphocytes 23.1 % (21.0-51.0); %Monocytes 7.5 % (0.0-10.0); %Neutrophils 68.4 % (42.0-75.0); Hemoglobin 7.4 g/dL (12.0-16.0); Mean Corpuscular HGB CONC 33.3 g/dL (32.0-36.0); Mean Corpuscular Volume 93.2 fL (78.0-98.0); Mean Platelet Volume 6.5 fL (7.4-10.4); Platelet Count 375 thou/uL (130-400); RBC Distribution Width 12.3 % (11.5-14.5); Red Blood Cell (RBC) Count 2.37 mill/uL (4.20-5.40); White Blood Cell (WBC) Count 10.4 thou/uL (4.8-10.8)
--- NOTE | 2018-09-07 09:07 | PRG ---
DATE OF SERVICE: 09/07/2018 SUBJECTIVE: The patient received one dose of morphine last night and required no pain medications overnight. She has not yet ambulated. This morning she received her dose of ultram and reports that she still occasionally has some pain. She is passing gas, but she has not yet has bowel movements. She has tolerated p.o. without difficulty. PHYSICAL EXAMINATION: VITAL SIGNS: Blood pressure 112/57, pulse 59, respiratory rate 18, temperature 98.8. GENERAL: Awake, alert, in no acute distress. CHEST: Nonlabored. ABDOMEN: Soft. Mildly tender to palpation. No guarding, no rebound. Incision well approximated without any signs of infection. LABORATORY DATA: WBC 10.4, hemoglobin 7.4, hematocrit 22.1, platelets 375,000. ASSESSMENT AND PLAN: A 33-year-old postoperative day #12, following , who was admitted for fever and pain. Her last fever was at 0200 on 09/06/2018, she has been afebrile since. She did have a significant pain last night and was offered a diagnostic laparoscopy, but she declined. She got one dose of morphine and was able to sleep through the night without complaints. The patient reports some pain this morning, but does not appears to be as severe as previously. I have ordered the patient to ambulate four times a day. She will continue Miralax, as she still has not had a BM. She reports that if she starts having pain again like last night, she may be more amenable to surgery. I have made her n.p.o. and she will notify the nurse if she wants to discuss this further. Job ID: [id number] MTDD
--- NOTE | 2018-09-07 09:51 | PDOC.EVN ---
Event Note - Event Note Event Note: Here to re-evaluate patient. Report given to me this AM by Dr. Vallejo. 33 yo BF now POD#12 for 1* C/s by Dr. Gustafson for distress. Presented 09/05 c/o abdominal pain. CT showed 5.9x 8.2 cm mass, hematoma vs. torsion. Of note, pt refused exploratory surgery on admit, continues to refuse surgery at this time. Has been on Rocephin and Flagyl since admit. Currently NPO. PEx VSS, AF since admit. BP= 126/60, P= 70, Tnow= 99.8. Continues to c/o pain despite MS04 and Tramadol. Abdomen is nondistended and soft. She does have tenderness to deep palpation LLQ. Wound is clean. Discussed pt's clinical situation with her at length. Plan; will repeat imaging to reasses possibility of torsion and discuss again with pt. after this is done.
[2018-09-07] MEDS: metroNIDAZOLE 500 MG TAB PO SCH ×3 (10:17→21:10)
--- NOTE | 2018-09-07 12:45 | ULT ---
PELVIS ULTRASOUND: 09/07/2018 HISTORY: Post . The patient is 12 days . Abnormal prior pelvic ultrasound. COMPARISON: 09/05/2018 FINDINGS: The uterus remains enlarged but does measure smaller in size compared to the prior study, measuring 1 3.3 cm x 7.9 x 10.3 cm, again likely related to state. The endometrial stripe remains thi ckened, measuring 2.3 cm. Again noted is heterogeneous material seen within the endometrial canal, w hich, again, may be related to blood products and/or retained products of conception. The previously noted mass in the lower aspect of the pelvis is again seen, demonstrating a heterogene ous appearance. A normal appearing right ovary is not visualized, but there is a mass seen in the ri ght adnexal region/right aspect of the pelvis, which is closely associated with the lower uterine seg ment. I am unsure if this is related to a mass in the uterus or whether this represents an ovarian m ass or an enlarged, heterogeneous uterus. This mass-like structure measures 7.5 cm x 5.6 cm x 5.6 cm . There is a closely adjacent additional heterogeneous structure also seen in the right adnexa, lamont uring 2.7 cm x 2.1 cm x 2.4 cm. Again, a normal appearing right ovary is unable to be visualized. N o flow is detected within this mass on color-flow and Doppler evaluation. What is thought to be the left ovary is visualized but it is also enlarged and measures 6.3 cm x 3 cm x 2.7 cm. Doppler evaluation within this structure also demonstrates arterial flow. No free fluid is seen in the cul-de-sac. IMPRESSION: 1. Enlarged uterus likely related to state. Heterogeneous material is again seen within the endometrial canal, which, again, may be related to hemorrhage and/or retained products of concept ion. 2. Heterogeneous and predominantly hypoechoic, mass in the lower pelvis, in the region of the lower uterine segment and in the right adnexal region. The exact origin of this mass is unable to be delin eated on sonographic evaluation; however, this is overall stable compared to the prior examination. No flow is seen within this structure on color-flow evaluation. The exact etiology is also unable to be determined based on sonographic evaluation. A normal ovary is not visualized. Ovarian torsion co uld not be entirely excluded, but this structure had a more cystic structure on recent CT exam. MRI p bakari may be beneficial for further evaluation. 3. Enlarged left ovary with arterial flow documented. The left ovary was not visualized on the prio r exam. 4. Additional heterogeneous, mass-like structure is seen in the right adnexal region. The exact luli ology for this structure is uncertain. This was visualized on CT pelvis with an hyperdense area pres ent. I am unsure if this represents calcification. Area of hemorrhage and hematoma within the right adnexal region is a possibility. No free fluid is seen on this examination. POS: [facility]
--- NOTE | 2018-09-07 13:12 | PDOC.EVN ---
Event Note - Event Note Event Note: USG disctated by Dr. Sprague and reviewed with Dr. Ryan: 7.5 x 5.6 cm mass in R pelvis, no flow seen but not enlarged from previous scan. VSS, AF 1 BM since C/S. Lab this AM: WBC+ 10.4, H&H= 7.4/, plts= 375K. Will advance diet and continue Tramadol for pain. Encouraged ambulation and added MOM and Dulcolax. Cont. ABX. Will proceed with MRI if sxs. persist.
[2018-09-07] MEDS: Bisacodyl 5 MG TAB PO PRN (13:21)
[2018-09-07] MEDS: Milk Of Magnesia 30 ML UDCUP PO PRN (13:24)
[2018-09-07] MEDS: cefTRIAXone\\ROCEPHIN 1 GM in Sodium Chloride 0.9% 100 ML IVPB SCH (14:48)
[2018-09-07] MEDS: Ibuprofen 800 MG TAB PO PRN (14:48)
--- NOTE | 2018-09-07 20:04 | PDOC.EVN ---
Event Note - Event Note Event Note: Leadership Development Instructor note: D/W Dr Vieyra, AM . Clinically better, so we will hold off on MRI as it will likley not change current care. Feels better after BM today was induced with dulcolax. Continue Flagyl and Rocephin with likely DC to home tomorrow with resono in 2 weeks. Hct today was 22. Afebrile.
--- NOTE | 2018-09-07 20:59 | PRG ---
DATE OF SERVICE: 09/07/2018 ON-CALL CLIENT TECHNOLOGIES SPECIALIST NOTE LOCATION: Bed 337 on . In brief, I reviewed the patient's care with Dr. Vieyra, who was on-call today prior to my arrival at 8:00 p.m. This patient was admitted 2 days ago and is roughly now about 12 days post with what a CT and ultrasound revealed to be a likely perez-uterine hematoma. I interviewed and saw the patient at bedside. Her abdomen is soft, nontender, and nondistended. She states that today she has had 3 bowel movements after milk of magnesia and dulcolax. She states that she has not had a bowel movement since delivery (12 days). She states that the pain immediately resolved with these bowel movements. She states that she feels "100% better." I discussed with her the finding on the CT and the ultrasound and told her that we could likely follow that up in the future with just a repeat ultrasound. I believe that the patient's pain, which was her presenting symptom, was related to the bowel impaction. On physical exam, she is in no acute distress. Abdomen is soft and nontender. Incision is clean, dry, and intact with Steri-Strips. There is no evidence of wound infection or skin cellulitis. ASSESSMENT: This is a patient, who is postop day #12 on Rocephin and Flagyl currently with an incidental finding of a pelvic hematoma, who now feels better after a bowel movement. PLAN: 1. Continue antibiotics for now. 2. We will likely send the patient home tomorrow as she is clinically improved. 3. She can have an outpatient followup ultrasound to track the status of the pelvic hematoma in about 2 to 3 weeks. Job ID: [id number]
[2018-09-07] MEDS: Zolpidem Tartrate 5 MG TAB PO PRN (21:10)
[2018-09-08] MEDS: traMADol HCl 50 MG TAB PO PRN (01:34)
[2018-09-08] MEDS: Lactated Ringer's 1,000 ML IV SCH (02:30)
[2018-09-08] MEDS: Ibuprofen 800 MG TAB PO PRN (04:37)
[2018-09-08] MEDS: Milk Of Magnesia 30 ML UDCUP PO PRN (04:57)
[2018-09-08] MEDS: Bisacodyl 5 MG TAB PO PRN (04:57)
[2018-09-08 05:47] VITALS: TEMP 98.6
[2018-09-08 08:15] VITALS: BP 107/59
--- NOTE | 2018-09-08 08:52 | DIS ---
DATE OF ADMISSION: 09/05/2018 DATE OF DISCHARGE: 09/08/2018 LOCATION: , the patient is in room 337. LENGTH OF STAY: 3 to 4 days. PRINCIPAL DIAGNOSES: 1. Postop from a primary from Dr. Gustafson with abdominal pain. 2. Suspected periuterine hematoma. 3. Extreme constipation. HOSPITAL COURSE: In brief, this patient was evaluated by Dr. Helm, who admitted the patient. This patient is the patient of Dr. Gustafson. She presented with pelvic pain and fever initially. The patient is a 33-year-old female, who was 10 days postop when first seen, who is status post a primary after a failed induction of labor. She denied any excessive bleeding or drainage from the incision. She stated that she was having severe abdominal pain when she presented. When she was seen in the emergency room, there was some concern that the patient was experiencing endometritis, so ASSOCIATE SALES REPRESENTATIVE was consulted. On physical exam, she had a temperature max of 100.4 with a prior temperature of 99.7. On 09/05/2018, an abdominopelvic CT was obtained, which showed an enlarged uterus with some low-attenuation density, which could possibly represent blood or retained products of conception. There was also a large 6 x 8 cm diameter low-attenuation mass in the right adnexa, that was unsure if it was or not related to the lower uterine segment. As stated in that report, "Given its appearance on prior ultrasound, the possibility that this could represent an abnormally enlarged right ovary, a torsed right ovary, is certainly a consideration". Clinically, the patient did not appear to have an ovarian torsion. On history reviewed, the patient had not had a bowel movement since the day of delivery, and so Dr. Vieyra proceeded to give the patient milk of magnesia and Dulcolax with a resulting bowel movement on 09/07/2018. The patient had three bowel movements and states that her pain "immediately went away". On laboratory assessment, her initial white blood cell count was 12.8, and on 09/07/2018, at 0554 hours, white blood cell count was 10.4. Hematocrit value was initially 25.6, and then repeat value was 23.1 and 22.1. On initial laboratory assessment, she had AST and ALT that were both normal with a creatinine of 0.55. When the patient was admitted, she was placed on ceftriaxone and Flagyl for suspected metritis. When I evaluated the patient on 09/07/2018, as well as the day of discharge, which was 09/08/2018, she had been afebrile. T-max was on 2017, at 0800 hours, which was 99.8. On physical exam on the day of discharge, the patient's abdomen was soft and nontender with no palpable tenderness elicited. Incision was clean, dry, intact, and sutured. As the patient felt clinically better after her bowel movement, with a lack of bowel movement since delivery, it was felt that the patient's pain was likely due to her extreme constipation. The patient's unclear adnexal/uterine mass will be followed up as an outpatient with a repeat ultrasound in 2 to 3 weeks to track progress and resolution. At the time of evaluation, it did not appear that the patient was surgical as the physical exam did not support torsion or acute intraperitoneal process. This finding on CT and imaging likely represents an organized hematoma , but will require ultrasound followup. Job ID: [id number] [facility]
[2018-09-08] MEDS: metroNIDAZOLE 500 MG TAB PO SCH (10:02)
== END 2018-09-08 13:30 | disposition home or self-care (01) ==
LOC: ERS 14:02 → INTOOBSV 17:30 → 3SW 17:30
PROVIDERS: ADMIT Obstetrics & Gynecology; ATTEND Obstetrics & Gynecology
DX: R10.2 Pelvic and perineal pain (principal); R50.9 Fever, unspecified; K59.09 Other constipation; R19.00 Intra-abdominal and pelvic swelling, mass and lump, unspecified site; Z79.899 Other long term (current) drug therapy
CPT/HCPCS: 36415; 74177; 76856; 80053; 81003; 81015; 81025; 85025; 85027; 96361; 96365; 96366; 96375; 96376; G0378; J0696; J1885; J2270; J2405; J7050

== ENCOUNTER 2019-12-07 18:46 | Emergency (ER) | payer SELFPAY ==
[2019-12-07 19:33] LABS: #Eosinphils 0.1 thou/uL (0.0-0.7); #Lymphocytes 1.9 thou/uL (1.20-3.40); #Monocytes 0.5 thou/uL (0.11-0.59); #Neutrophils 5.9 thou/uL (1.40-6.50); %Basophils 0.5 % (0.0-1.0); %Eosinophils 0.8 % (0.0-10.0); %Lymphocytes 22.9 % (21.0-51.0); %Monocytes 5.5 % (0.0-10.0); %Neutrophils 70.4 % (42.0-75.0); Mean Corpuscular HGB CONC 34.4 g/dL (32.0-36.0); Mean Corpuscular Hemoglobin 31.7 pg (27.0-31.0); Mean Corpuscular Volume 92.2 fL (78.0-98.0); Platelet Count 182 thou/uL (130-400); RBC Distribution Width 12.2 % (11.5-14.5); Red Blood Cell (RBC) Count 3.48 mill/uL (4.20-5.40); White Blood Cell (WBC) Count 8.4 thou/uL (4.8-10.8)
[2019-12-07] MEDS ORDERED: Acetaminophen 500 MG TAB ONE (19:44)
[2019-12-07] MEDS ORDERED: Ketorolac Tromethamine 30 MG/ML VIAL ONE (20:01)
--- NOTE | 2019-12-07 21:53 | ULT ---
PELVIC ULTRASOUND: 12/07/19 HISTORY: Positive HCG. Bleeding. COMPARISON: CT examination of 09/05/18 which was a exam. An ultrasound was also performed that day. Real time imaging of the pelvis was obtained both transabdominally as well as with an endovaginal pro be. The uterus is enlarged. It measures 6 x 9.5 x 12.6 cm. Endometrium is heterogeneous and thickened . No intrauterine gestational sac is identified. The left ovary shows a small follicle. The right ovary is normal in size. Interposed between the righ t ovary and uterus is a solid appearing mass fairly well circumscribed measuring 5.2 cm. This was act ually present on the previous ultrasound examination. It probably represents some type of pedunculate d fibroid. IMPRESSION: 1. Very heterogeneous appearance to the endometrium of the uterus probably representing blood, r esidual products could be present. I do not see a definite gestational sac or pole although the re may be what is distorted sac in the lower uterine segment. 2. Right adnexal mass stable in appearance as compared to a previous ultrasound study. Probably a pedunculated fibroid. Findings were discussed with Dr. Oneal. POS: [facility]
[2019-12-07] MEDS ORDERED: Misoprostol 200 MCG TAB PO SCH (22:15)
== END 2019-12-07 22:57 | disposition home or self-care (01) ==
LOC: ERS 18:46
DX: O03.4 Incomplete spontaneous abortion without complication (principal); F41.9 Anxiety disorder, unspecified; F32.9 Major depressive disorder, single episode, unspecified; F17.210 Nicotine dependence, cigarettes, uncomplicated
CPT/HCPCS: 36415; 76856; 84702; 85025; 86900; 86901; 96374; J1885

== ENCOUNTER 2020-09-02 01:30 | Inpatient (IN) | payer MEDICAID, SELFPAY ==
--- NOTE | 2020-09-02 02:29 | HP ---
CHIEF COMPLAINT: Transfer from [facility], abdominal pain, positive test. HISTORY OF PRESENT ILLNESS: Ms. Dumont is a 35-year-old black G5, P3, AB1 with a certain last menstrual period of July 12, 2020, who presents complaining of a 1-week history of abdominal pain with acute sharp pain noted earlier today. She states she felt a popping sensation. She was brought to [facility] by EMS and reportedly had an episode of hypotension in the ambulance. She was evaluated at [facility] where she was found to have a positive test and an ultrasound that showed no evidence of an intrauterine . Due to concern of ectopic , she was transferred here. PAST OBSTETRICAL HISTORY: Includes one previous section. The rest of her other two deliveries were by vaginal delivery. She states that she has had chlamydia in the past. She states she has also had one miscarriage. PAST MEDICAL HISTORY: None. PAST SURGICAL HISTORY: as above. CURRENT MEDICATIONS: None. ALLERGIES: NO KNOWN ALLERGIES. SOCIAL HISTORY: She states she smokes one package of cigarettes per day. She denies illicit drug use or alcohol. PHYSICAL EXAMINATION: VITAL SIGNS: Blood pressure in PACU is 105/62. Pulse is 88. GENERAL: The patient is sobbing, complaining of pain. CHEST: Clear to auscultation. CARDIOVASCULAR: Regular rate and rhythm. ABDOMEN: Mildly distended. There is both guarding and rebound noted on abdominal exam. PELVIC: Deferred. LABORATORY DATA: White count 13.6, hemoglobin and hematocrit 9.4 and 27.7, platelet count 185,000. Quantitative beta-hCG is 2791. Pelvic ultrasound shows an empty uterus with fluid in the cul-de-sac. No discrete pelvic masses are described. ASSESSMENT: 1. Acute abdominal pain, now with guarding and rebound. 2. Clinical scenario suspicious for ruptured ectopic . PLAN: In view of the patient's previous pelvic surgery and her low hemoglobin at this time with suspected hemoperitoneum, decision at this time is to proceed with a mini lap and exploration. The risks of the procedure including anesthesia, bleeding, infection, as well as damage to adjacent organs requiring repair removal or transfusion were discussed with her in detail, and she wishes to proceed. Job ID: [id number] [facility]
[2020-09-02] MEDS ORDERED: diphenhydrAMINE 25 MG CAP PO PRN (03:08)
[2020-09-02] MEDS ORDERED: Promethazine HCl 25 MG/ML VIAL SLOW IVP PRN (03:08)
[2020-09-02] MEDS ORDERED: Ondansetron HCl/PF 4 MG/2 ML Vial IVP PRN (03:08)
[2020-09-02] MEDS ORDERED: Promethazine HCl 25 MG/ML VIAL IM PRN ×3 (03:08→05:09)
[2020-09-02] MEDS ORDERED: diphenhydrAMINE 50 MG/ML VIAL IM PRN (03:08)
[2020-09-02] MEDS ORDERED: HYDROmorphone 10 mg/100 ml CADD IVPB PRN (03:08)
[2020-09-02] MEDS ORDERED: HYDROmorphone 2 MG/ML VIAL SLOW IVP PRN (03:08)
[2020-09-02] MEDS ORDERED: Zolpidem Tartrate 5 MG TAB PO PRN (03:08)
[2020-09-02] MEDS ORDERED: diphenhydrAMINE 50 MG/ML VIAL IVP PRN (03:08)
[2020-09-02] MEDS ORDERED: PACU-Morphine 4MG/ML VIAL SLOW IVP PRN (03:08)
[2020-09-02] MEDS ORDERED: Ondansetron PF 4 MG/2 ML Vial IVP PRN ×2 (03:08→05:09)
[2020-09-02] MEDS ORDERED: Naloxone HCl 0.4 mg/ml Vial IV PRN (03:08)
[2020-09-02] MEDS ORDERED: Communication Order-Pharmacy FS SCH (03:15)
[2020-09-02] MEDS ORDERED: Fentanyl 100 MCG/2 ML VIAL ONE ×2 (03:42→03:52)
--- NOTE | 2020-09-02 04:33 | OP ---
DATE OF PROCEDURE: 09/02/2020 PREOPERATIVE DIAGNOSIS: Suspected ruptured ectopic . POSTOPERATIVE DIAGNOSIS: Ruptured ectopic of the right distal fallopian tube. PROCEDURES: 1. Exploratory mini laparotomy. 2. Right distal salpingectomy. DIESEL MAINTENANCE TECHNICIAN SURGEON: Elvia Lopez MD, resident physician. ESTIMATED BLOOD LOSS: 600 to 800 mL. PROPHYLAXIS: Two grams Ancef prior to skin incision. FINDINGS: 1. 600 to 800 cc hemoperitoneum with multiple blood clots from the pelvis. 2. Ruptured distal right fallopian tube with active bleeding. COMPLICATIONS: None. TECHNIQUE IN DETAIL: After good general anesthesia was achieved, the patient was prepped and draped in the usual sterile fashion after placement of the Newman in the supine position. A small transverse incision was made two fingerbreadths above the symphysis pubis in the area of a previous section scar. The abdomen was entered in layers. Once the peritoneum was opened, copious amount of blood was encountered. This was suctioned, and there was approximately 600 to 800 cc of blood removed along with blood clot deep in the pelvis. Once the blood had been removed, the attention was then turned deep in the pelvis. The uterus was small and normal in size, shape, and contour. The left adnexa were normal in appearance with normal fallopian tube and normal ovary. On the right side, in the distal 3rd, the tube was ruptured and was actively bleeding. No specific ectopic was identified, but there were multiple clots removed from the pelvis. Attention was turned to the right fallopian tube. Paired Butch clamps were placed below the ruptured tube, and this area was excised. The mesosalpinx was then reapproximated using two sutures of Vicryl followed by freehand ties. Good hemostasis was noted after removal of the ruptured tube. The pelvis was thoroughly irrigated with normal saline, and the pelvis was then reinspected. No evidence of active bleeding was seen. Once the abdomen was completely irrigated and hemostasis was secured, the peritoneum was reapproximated using a running locking suture of Vicryl. The rectus muscles were made dry using Bovie coagulation technique. The fascia was closed using a single suture of #1 Vicryl brought from the left side to the right side. The subcutaneous tissue was thoroughly irrigated and made dry using Bovie coagulation technique. The skin was closed with metal jose. Sponge, lap, and needle counts were correct. The patient tolerated the procedure well and was taken to the recovery room in good condition. Job ID: [id number] MTDD
[2020-09-02] MEDS ORDERED: HYDROcodone/Acetaminophen 5/325 mg Tablet PO PRN ×2 (05:09)
[2020-09-02 05:33] VITALS: BMI 19.5
[2020-09-02] MEDS: Ketorolac Tromethamine 30 MG/ML VIAL IVP SCH ×3 (06:25→17:31)
[2020-09-02] MEDS: Lactated Ringer's 1,000 ML IV SCH ×3 (06:31→23:13)
[2020-09-02] MEDS: Sodium Chloride 0.9% 1,000 ML IV SCH ×3 (06:31→23:14)
[2020-09-02 08:01] LABS: Platelet Count 150 thou/uL (130-400)
[2020-09-02] MEDS ORDERED: FLU VACC QS2020-21(6MOS UP)/PF 60 MCG/0.5 ML SYRINGE IM ONE (09:00)
[2020-09-02] MEDS ORDERED: Glycopyrrolate 0.2 MG/ML 5 ML SYRINGE ONE (10:34)
[2020-09-02] MEDS ORDERED: Dexamethasone 20 MG/5 ML VIAL ONE (10:34)
[2020-09-02] MEDS ORDERED: Ketorolac Tromethamine 30 MG/ML VIAL ONE (10:34)
[2020-09-02] MEDS ORDERED: Rocuronium Bromide 10 MG/ML (10ML VIAL) ONE (10:34)
[2020-09-02] MEDS ORDERED: Ondansetron PF 4 MG/2 ML Vial ONE (10:34)
[2020-09-02] MEDS ORDERED: PROPOFOL 200 MG/20 ML VIAL ONE (10:34)
[2020-09-02] MEDS ORDERED: Lidocaine 1% PF 5 ML VIAL ONE (10:34)
[2020-09-02] MEDS ORDERED: traMADol HCl 50 MG TAB PO PRN (16:16)
[2020-09-02] MEDS ORDERED: Acetaminophen 500 MG TAB PO PRN (16:17)
[2020-09-02] MEDS ORDERED: Morphine 4 MG/ML VIAL SLOW IVP PRN (16:18)
[2020-09-02] MEDS ORDERED: Morphine 4 MG/ML VIAL SLOW IVP SCH (16:30)
[2020-09-02] MEDS: traMADol HCl 50 MG TAB PO PRN ×2 (18:18→22:20)
[2020-09-03] MEDS: Ketorolac Tromethamine 30 MG/ML VIAL IVP SCH ×2 (00:17→06:42)
[2020-09-03] MEDS: traMADol HCl 50 MG TAB PO PRN ×4 (02:40→15:27)
[2020-09-03] MEDS ORDERED: Simethicone Chewable 80 MG TAB PO PRN (03:02)
[2020-09-03] MEDS: Sodium Chloride 0.9% 1,000 ML IV SCH (05:08)
[2020-09-03] MEDS: Lactated Ringer's 1,000 ML IV SCH ×2 (05:08→09:39)
[2020-09-03] MEDS: Ibuprofen 600 MG TAB PO SCH ×2 (07:39→14:12)
[2020-09-03] MEDS: Acetaminophen 500 MG TAB PO SCH ×2 (07:41→14:13)
--- NOTE | 2020-09-03 07:54 | PRG ---
DATE OF SERVICE: 09/03/2020 SUBJECTIVE: The patient is postop day 1, status post exploratory laparotomy and salpingectomy for a ruptured ectopic . The patient has been transitioned over to p.o. tramadol yesterday from a Dilaudid INTERNET SOURCER pump and is doing well. She has been in addition receiving IV Toradol. The patient reports she is tolerating a diet and she has not passed gas yet and has voiding on her own. OBJECTIVE: VITAL SIGNS: This morning, blood pressure is 99/57, temperature 97.9, pulse of 54, and respiratory rate of 16. GENERAL: She appears to be in no acute distress. She is alert, oriented, cooperative, and pleasant to interact with. HEENT: Head is normocephalic and atraumatic. Incision is clean, dry, and intact with jose 8 o'clock. LABORATORY DATA: Hemoglobin and hematocrit yesterday morning were 8 and 24 with a platelet count of 150,000. ASSESSMENT AND PLAN: The patient is postop day 1, status post exploratory laparotomy with salpingectomy for a ruptured ectopic . By report, she has lost about 600 to 800 mL of blood. Will be repeating a CBC this morning. Will continue in-house care and anticipate discharge tomorrow. I will be transitioning the patient off IV Toradol to p.o. ibuprofen. Job ID: [id number]
[2020-09-03 11:32] VITALS: BP 104/50
[2020-09-03 14:03] LABS: Hemoglobin 6.7 g/dL (12.0-16.0); Platelet Count 125 thou/uL (130-400)
[2020-09-03 15:55] VITALS: TEMP 98
--- NOTE | 2020-09-04 01:57 | DIS ---
DATE OF ADMISSION: 09/02/2020 DATE OF DISCHARGE: 09/03/2020 DIAGNOSES: 1. Ruptured ectopic . 2. Acute blood loss anemia. PROCEDURES: 1. Exploratory laparotomy with right salpingectomy. 2. Transfusion 1 unit of packed red blood cells. HOSPITAL COURSE: The patient presented to the emergency department with sharp abdominal pain. She arrived by ambulance and had an episode of hypotension in the ambulance. She was found to have an acute abdomen and was taken to the operating room for the above-mentioned procedure. She was admitted and had routine postop care. On postop day #1, the patient was requesting to go home and was meeting all milestones. She was found to be anemic with a hemoglobin of 6.7 and agreed to transfusion of 1 unit of packed red blood cells. She remained asymptomatic with normal vital signs, and following her transfusion, she was ready to go home and was discharged home. MEDICATIONS: 1. Ultram 50 mg one tab p.o. q.4 hours p.r.n. pain, #20, no refills. 2. Ibuprofen 800 mg p.o. q.8 hours p.r.n. pain, #30, one refill. 3. Iron b.i.d. FOLLOWUP: Follow up with Dr. Gustafson for staple removal and for postop care or with [facility]. INSTRUCTIONS: Return or call with significant pain issues, bleeding, fever, or other concerns. Job ID: [id number]
[2020-09-04] MEDS ORDERED: Ferrous Sulfate 325 MG TAB PO SCH (08:00)
== END 2020-09-03 18:45 | disposition home or self-care (01) | DRG 817 ==
LOC: SDC 01:30 → 3SE 01:31
PROVIDERS: ADMIT Obstetrics & Gynecology; ATTEND Obstetrics & Gynecology
PROC: 0UB50ZZ Excision of Right Fallopian Tube, Open Approach (ICD-10-PCS; principal; 2020-09-02)
PROC: 0W9J0ZZ Drainage of Pelvic Cavity, Open Approach (ICD-10-PCS; 2020-09-02)
PROC: 30233N1 Transfusion of Nonautologous Red Blood Cells into Peripheral Vein, Percutaneous Approach (ICD-10-PCS; 2020-09-03)
DX: O00.101 Right tubal pregnancy without intrauterine pregnancy (principal); K66.1 Hemoperitoneum; D62 Acute posthemorrhagic anemia
CPT/HCPCS: 36415; 36430; 85014; 85018; 85049; 86850; 86900; 86901; 88302; J1100; J1885; J2405; J2704; J3010; P9016

== ENCOUNTER 2020-09-04 09:14 | Emergency (ER) | payer MEDICAID, SELFPAY ==
[2020-09-04] MEDS ORDERED: Metoclopramide 10 MG/10 ML UDCUP ONE (09:48)
[2020-09-04] MEDS ORDERED: diphenhydrAMINE 50 MG/ML VIAL ONE (09:48)
[2020-09-04] MEDS ORDERED: Metoclopramide HCl 10 MG/2 ML VIAL ONE (09:48)
--- NOTE | 2020-09-04 10:12 | CT ---
CT BRAIN WITHOUT CONTRAST: Date: 09/04/2020 HISTORY: Headache and leg numbness. FINDINGS: Comparison made with exam of 11/07/2019. No evidence of acute infarct, hemorrhage, midline shift, or abnormal extra-axial fluid collections ar e seen. The ventricular size is normal and the basilar cisterns are patent. The bony calvarium is int act. The visualized paranasal sinuses and mastoid air cells are well aerated. IMPRESSION: No CT evidence of acute intracranial process. POS: OFF
[2020-09-04] MEDS ORDERED: Ketorolac Tromethamine 30 MG/ML VIAL ONE (10:27)
[2020-09-04 11:14] LABS: #Basophils 0.1 thou/uL (0.0-0.2); #Eosinphils 0.1 thou/uL (0.0-0.7); #Lymphocytes 2.5 thou/uL (1.20-3.40); #Monocytes 0.3 thou/uL (0.11-0.59); %Basophils 1.1 % (0.0-1.0); %Eosinophils 0.7 % (0.0-10.0); %Lymphocytes 31.6 % (21.0-51.0); %Neutrophils 62.6 % (42.0-75.0); Hemoglobin 8.6 g/dL (12.0-16.0); Mean Corpuscular HGB CONC 33.6 g/dL (32.0-36.0); Mean Corpuscular Hemoglobin 31.4 pg (27.0-31.0); Mean Corpuscular Volume 93.4 fL (78.0-98.0); Mean Platelet Volume 8.3 fL (7.4-10.4); Platelet Count 139 thou/uL (130-400); RBC Distribution Width 12.5 % (11.5-14.5); Red Blood Cell (RBC) Count 2.73 mill/uL (4.20-5.40)
[2020-09-04 11:23] LABS: ALT (SGPT) 10 U/L (8-55); AST (SGOT) 13 U/L (5-34); Albumin 3.3 g/dL (3.5-5.0); Alkaline Phosphatase 42 U/L (40-110); Anion Gap 12 mmol/L (10-20); BUN (Urea Nitrogen) 6 mg/dL (7.0-18.7); Bilirubin, Total 1.1 mg/dL (0.2-1.2); Calc. Creatinine Clearance 0 mL/min (70-130); Calcium 8.6 mg/dL (7.8-10.44); Carbon Dioxide 24 mmol/L (22-29); Chloride 107 mmol/L (98-107); Globulin 2.2 g/dL (2.4-3.5); Glucose 80 mg/dL (70-105); Potassium 3.1 mmol/L (3.5-5.1); Protein, Total 5.5 g/dL (6.0-8.3); Sodium 140 mmol/L (136-145)
[2020-09-04] MEDS ORDERED: Potassium Chloride 20 MEQ TAB ONE (11:51)
== END 2020-09-04 12:50 | disposition home or self-care (01) ==
LOC: ERS 09:14
DX: E87.6 Hypokalemia (principal); R51.9 Headache, unspecified
CPT/HCPCS: 36415; 70450; 80053; 85025; 96365; 96375; J1200; J1885; J2765

== ENCOUNTER 2020-09-25 22:53 | Observation (INO) | payer MEDICAID ==
[~2020-09-25 22:53] MED LIST changes: -Iopamidol 370 76% 100 ML VIAL ONE; +Iopamidol-370 76% 500 ML 1 ML ONE
[2020-09-25 23:39] LABS: #Basophils 0.1 thou/uL (0.0-0.2); #Eosinphils 0.1 thou/uL (0.0-0.7); #Lymphocytes 3.8 thou/uL (1.20-3.40); #Monocytes 0.5 thou/uL (0.11-0.59); #Neutrophils 4.4 thou/uL (1.40-6.50); %Basophils 1.1 % (0.0-1.0); %Eosinophils 1.4 % (0.0-10.0); %Lymphocytes 42.8 % (21.0-51.0); %Monocytes 5.2 % (0.0-10.0); %Neutrophils 49.5 % (42.0-75.0); Hemoglobin 9.2 g/dL (12.0-16.0); Mean Corpuscular HGB CONC 33.5 g/dL (32.0-36.0); Mean Corpuscular Hemoglobin 31.1 pg (27.0-31.0); Mean Corpuscular Volume 92.9 fL (78.0-98.0); Mean Platelet Volume 8.4 fL (7.4-10.4); Platelet Count 163 thou/uL (130-400); RBC Distribution Width 12.4 % (11.5-14.5); Red Blood Cell (RBC) Count 2.96 mill/uL (4.20-5.40); White Blood Cell (WBC) Count 8.9 thou/uL (4.8-10.8)
[2020-09-26] LABS: ALT (SGPT) 16 U/L (8-55); AST (SGOT) 15 U/L (5-34); Albumin 3.7 g/dL (3.5-5.0); Alkaline Phosphatase 60 U/L (40-110); Anion Gap 13 mmol/L (10-20); BUN (Urea Nitrogen) 12 mg/dL (7.0-18.7); Bilirubin, Total 0.3 mg/dL (0.2-1.2); Calc. Creatinine Clearance 0 mL/min (70-130); Calcium 8.5 mg/dL (7.8-10.44); Carbon Dioxide 20 mmol/L (22-29); Chloride 109 mmol/L (98-107); Globulin 2.4 g/dL (2.4-3.5); Glucose 94 mg/dL (70-105); Potassium 3.6 mmol/L (3.5-5.1); Protein, Total 6.1 g/dL (6.0-8.3); Sodium 138 mmol/L (136-145)
[2020-09-26] MEDS ORDERED: Ketorolac Tromethamine 30 MG/ML VIAL ONE (00:01)
[2020-09-26] MEDS ORDERED: HYDROcodone/Acetaminophen 5/325 mg Tablet PO PRN (01:24)
[2020-09-26] MEDS ORDERED: Ondansetron ODT 4 MG TAB PO PRN (01:24)
[2020-09-26] MEDS ORDERED: Ondansetron PF 4 MG/2 ML Vial IVP PRN (01:24)
[2020-09-26] MEDS ORDERED: Ibuprofen 800 MG TAB PO PRN (01:27)
[2020-09-26] MEDS: HYDROcodone/Acetaminophen 5/325 mg Tablet PO PRN ×2 (03:03→07:14)
[2020-09-26] MEDS: Piperacillin/Tazobactam 3.375 GM in Sodium Chloride 0.9% 100 ML IVPB SCH ×2 (04:31→08:28)
--- NOTE | 2020-09-26 06:46 | RAD ---
PORTABLE CHEST: DATE: 09/25/2020. PROVIDED CLINICAL HISTORY: Pain. FINDINGS: Comparison 04/12/2020. The cardiac and mediastinal silhouette is within normal limits. No focal cons olidation, pleural fluid, or pneumothorax apparent. IMPRESSION: No evidence for an acute cardiopulmonary process. POS: [facility]
[2020-09-26 07:40] VITALS: BMI 21.4
--- NOTE | 2020-09-26 08:01 | HP ---
TIME OF SERVICE: 1:30 a.m. CHIEF COMPLAINT: Abdominal pain. HISTORY OF PRESENT ILLNESS: This is a 35-year-old, G5, P3, who is postop day 25 status post ex lap for a ruptured ectopic and hemoperitoneum, who presented to the emergency department with gradually worsening abdominal pain since just after she went home from the hospital. She was discharged home on 09/04 and was to follow up with Dr. Gustafson for a postop appointment and staple removal; however, the patient never went. The patient reports that she has had again worsening of abdominal pain, worse in the right lower quadrant since that time. It became unbearable yesterday, which is what brought her into the hospital to be evaluated. She reports that she has some constipation, but is able to have a bowel movement generally every day. She denies any urinary complaints. She otherwise is somewhat of a difficult historian. REVIEW OF SYSTEMS: Negative for head, eyes, ears, nose, throat, cardiovascular, respiratory, GI, , neuro-psych, musculoskeletal, skin, or constitutional symptoms other than mentioned above. PAST MEDICAL HISTORY: None. PAST SURGICAL HISTORY: 1. x1. 2. Exploratory laparotomy for ectopic. OB HISTORY: Two spontaneous vaginal deliveries and one , one ectopic, and one spontaneous . MEDICATIONS: 1. Ibuprofen. 2. Tylenol 3. 3. Naproxen. ALLERGIES: NO KNOWN DRUG ALLERGIES. SOCIAL HISTORY: Positive for tobacco use of approximately half pack per day. Denies any alcohol or drug use. FAMILY HISTORY: Noncontributory. PHYSICAL EXAMINATION: VITAL SIGNS: Blood pressure 97/63, pulse 78, respiratory rate 18, temperature 98.3, and O2 saturation 100% on room air. GENERAL: Awake, alert, no acute distress. Appears comfortable. CHEST: Nonlabored. ABDOMEN: Soft, mildly tender to palpation in the lower abdomen. No rebound. No guarding. No masses palpable. PELVIS: Deferred. EXTREMITIES: No cyanosis, clubbing, or edema. IMAGING DATA: CT scan report not available, but verbal report from the emergency department physician said there are multiple masses in the lower abdomen arising from the pelvis with areas that appear to be ring-enhancing, possibly consistent with abscess versus hematoma. LABORATORY DATA: WBC 8.9, hemoglobin 9.2, hematocrit 27.5, and platelets 163,000. Chemistry unremarkable. HCG 3. ASSESSMENT AND PLAN: This is a 35-year-old, G5, P3, postop day 25, status post exploratory laparotomy from a ruptured ectopic . Upon review of the pathology, there were no villi seen and again the patient was supposed to follow up with Dr. Gustafson but had failed to do so. Fortunately, her HCG level is negative at 3, so the ectopic has resolved. She does have multiple ring-enhancing lesions in her abdomen consistent with hematoma versus abscess and given her poor compliance, I made the decision to admit her for IV antibiotics. She does still have jose in place from her surgery 25 days ago and this will be removed. She will receive [place] and ibuprofen for pain relief and placed on a regular diet. I am starting her on Zosyn for broad spectrum coverage. I will discuss her case further as this is somewhat complicated with Dr. Helm, who will be taking over for me today. We will continue to monitor. Job ID: [id number]
--- NOTE | 2020-09-26 08:09 | CT ---
CT OF THE ABDOMEN AND PELVIS WITH IV CONTRAST: DATE: 09/25/2020. PROVIDED CLINICAL HISTORY: Status post surgery for ectopic with increasing pelvic pain. FINDINGS: The visualized lung bases are free of significant opacity. The solid abdominal organs demonstrate an unremarkable CT appearance. Evaluation of the pelvis is markedly limited due the absence of oral contrast material and paucity of intraperitoneal fat. There is a somewhat circumscribed, mass-like area of altered CT density within the expected location of the right adnexa, measuring at least 7.5 x 5.7 cm. This appears peripheral ly somewhat hyperdense/enhancing and centrally hypodense. This appears separate from the uterus, whi ch appears deviated leftward possibly on the basis of mass effect from this mass. Additionally, ther e are rim enhancing cystic masses present within the right hemipelvis, the larger of which measures a bout 4 cm in greatest transverse dimension. There is a 3-4 mm calcification present in the right hem ipelvis that is probably not within the urinary bladder or distal ureter. There is no hydronephrosis . There is mild free pelvic fluid. There is moderate colonic fecal retention. There is no evidence for free air. No evidence for lymph node enlargement. The osseous structures demonstrate no concerning lytic or blastic lesions. IMPRESSION: 1. A 7.5 cm right adnexal mass, the CT features of which are not specific. This may reflect hematom a given recent surgery. An abnormally enlarged right ovary could also be considered. Evaluation is limited as described above. 2. Adjacent cystic masses within the right hemipelvis with rim enhancement, the largest of which madelin sures 4 cm. Correlate with concerns for abscess. 3. Mild free pelvic fluid. POS: AILYN
[2020-09-26] MEDS ORDERED: FLU VACC QS2020-21(6MOS UP)/PF 60 MCG/0.5 ML SYRINGE IM ONE (09:00)
[2020-09-26] MEDS ORDERED: Famotidine 20 MG TAB PO SCH (09:00)
[2020-09-26] MEDS ORDERED: Ketorolac Tromethamine 30 MG/ML VIAL IVP SCH (09:45)
[2020-09-26] MEDS ORDERED: Piperacillin/Tazobactam 3.375 GM in Sodium Chloride 0.9% 100 ML IVPB SCH (11:00)
[2020-09-26] MEDS ORDERED: Lidocaine 2% Viscous Solution 20 ML, Aluminum & Magnesium Hydroxide 30 ML, Donnatal Eli... SSW SCH (12:00)
[2020-09-26 12:09] VITALS: TEMP 98.6
--- NOTE | 2020-09-26 12:11 | PDOC.EVN ---
Event Note - Event Note Event Note: called to room for recurrent chest pain. troponins, ekg gi cocktail ordered. On exam earlier today pain seemed to me consistent with costochondritis. pain was reproducible to palpation. On arrival pt is reporting bad chest pain that came on after eating two pepporoni's off her pizza. dayron had just arrived. pain is epigastric now. vitals 133/88 81 99% room air, 98.6, 18 PT sitting in room talking to someone on the phone about all the stress she has been under and becomes tearful. EKG normal. troponin wnl tumms, ppi ordered. gi cocktail pending. pain has resolved with GI cocktail. Pt will be discharged on amoxicillin, maalox, ppi
[2020-09-26 12:13] VITALS: BP 138/88
[2020-09-26] MEDS ORDERED: Pantoprazole 40 MG VIAL IVP SCH (12:30)
[2020-09-26] MEDS ORDERED: Calcium Carbonate 500 MG ChewTAB PO SCH (12:30)
--- NOTE | 2020-09-26 14:20 | DIS ---
DATE OF ADMISSION: 09/26/2020 DATE OF DISCHARGE: 09/26/2020 ADMITTING DIAGNOSES: 1. Chest pain. 2. Abdominal pain. 3. Pelvic mass. 4. Postoperative state. DISCHARGE DIAGNOSES: 1. Chest pain. 2. Abdominal pain. 3. Pelvic mass. 4. Postoperative state. 5. Gastric ulcer. CONSULTATIONS: None. HOSPITAL COURSE: The patient is a 35-year-old G5, P3 female who is postop day 25 status post laparotomy for ruptured ectopic. The patient presented with several week history of chest pain and abdominal pain and bloating. During her evaluation, patient was noted to still have jose from her laparotomy that she had not removed yet. CT findings showed some rim-enhancing collections of fluid in the pelvis. An AIRCRAFT DELIVERY CHECKER was consulted for concerns of abscess. The patient was admitted and started on Zosyn. I arrived on duty this morning and was called to the patient's room for chest pain. After talking with her this morning on several occasions, the patient reports that the chest pain was her primary concern and that her abdominal pain to me was reported more as bloating. She reports that the pain began after NSAID use, which she reports that she has taken a lot of NSAIDs over the last couple of weeks since the surgery. She reports that the pain during her stay here had acute onset after eating some pepperoni, which triggered my 2nd visit with her. At that time, EKG and troponins were ordered by phone and a GI cocktail. EKG was negative. Troponins were within normal limits and then upon arrival the GI cocktail administration, the patient reports resolution of her pain. Again, the patient reconfirmed that she is not having any abdominal pain. We did discuss the likelihood of her having a gastric ulcer, likely secondary to her NSAID use. The patient was counseled not to take any aspirin, naproxen and Motrin, ibuprofen or related pain medications for the next several months. She has been told to take omeprazole 40 mg daily for the next 2 months to allow time for her stomach to heal. The patient has been asked to follow up with Dr. Gustafson, her primary physician in 4 weeks. PHYSICAL EXAMINATION: VITAL SIGNS: Today at time of discharge, blood pressure is 133/88, temperature 98.6, pulse of 81, respiratory rate of 18 saturating 99% on room air. GENERAL: She appears to be in no acute distress. She is alert, oriented, cooperative, and pleasant to interact with. HEAD: Normocephalic atraumatic. ABDOMEN: Soft. Initial evaluation, the pain was in the epigastric region. The patient again is being discharged home with 1 prescription, omeprazole 40 mg to be taken daily and Maalox over the counter as needed. Given the timing, this is most likely related to ibuprofen therefore, antibiotics have not been included in her regimen at this time. Job ID: [id number]
--- NOTE | 2020-09-28 11:50 | EKG ---
Test Reason : Blood Pressure : / mmHG Vent. Rate : 059 BPM Atrial Rate : 059 BPM P-R Int : 170 ms QRS Dur : 082 ms QT Int : 398 ms P-R-T Axes : 076 084 073 degrees QTc Int : 394 ms Sinus bradycardia with sinus arrhythmia Possible Left atrial enlargement Borderline ECG Confirmed by ANGELA BRUNNER M.D. ([id number]), commissioning editor RADHA LEONARD ([id number] on 09/28/2020 11:50:28 AM Referred By: Confirmed By:ANGELA BRUNNER M.D.
--- NOTE | 2020-09-29 22:37 | EKG ---
Test Reason : C/O CHEST PAIN Blood Pressure : / mmHG Vent. Rate : 052 BPM Atrial Rate : 052 BPM P-R Int : 146 ms QRS Dur : 080 ms QT Int : 394 ms P-R-T Axes : 070 078 067 degrees QTc Int : 366 ms Sinus bradycardia with sinus arrhythmia Otherwise normal ECG When compared with ECG of 26-SEP-2020 00:06, (Unconfirmed) Nonspecific T wave abnormality no longer evident in Anterior leads Confirmed by Mathew EDWARDS ([id number]) on 09/29/2020 10:36:32 PM Referred By: BETTIE Confirmed By:Mathew EDWARDS
== END 2020-09-26 13:40 | disposition home or self-care (01) ==
LOC: ERS 22:53 → 3SW 09-26 01:24
PROVIDERS: ADMIT Obstetrics & Gynecology; ATTEND Obstetrics & Gynecology
DX: R07.9 Chest pain, unspecified (principal); R10.13 Epigastric pain; R10.31 Right lower quadrant pain; R19.03 Right lower quadrant abdominal swelling, mass and lump; K25.9 Gastric ulcer, unspecified as acute or chronic, without hemorrhage or perforation; K59.00 Constipation, unspecified; F17.210 Nicotine dependence, cigarettes, uncomplicated; F41.9 Anxiety disorder, unspecified; F32.9 Major depressive disorder, single episode, unspecified
CPT/HCPCS: 36415; 71045; 74177; 80053; 84484; 84702; 85025; 93005; 93010; 96374; 96375; 96376; C9113; G0378; J1885; J2543; J3490; Q9967

== ENCOUNTER 2021-01-25 19:33 | Emergency (ER) | payer SELFPAY ==
[2021-01-25 20:05] LABS: #Basophils 0.1 thou/uL (0.0-0.2); #Lymphocytes 2.5 thou/uL (1.20-3.40); #Neutrophils 9.6 thou/uL (1.40-6.50); %Basophils 0.4 % (0.0-1.0); %Eosinophils 0.2 % (0.0-10.0); %Monocytes 7.5 % (0.0-10.0); %Neutrophils 72.9 % (42.0-75.0); Hemoglobin 10.6 g/dL (12.0-16.0); Mean Corpuscular HGB CONC 33.6 g/dL (32.0-36.0); Mean Corpuscular Hemoglobin 29.1 pg (27.0-31.0); Mean Corpuscular Volume 86.7 fL (78.0-98.0); Mean Platelet Volume 8.6 fL (7.4-10.4); Platelet Count 233 thou/uL (130-400); RBC Distribution Width 13.9 % (11.5-14.5); Red Blood Cell (RBC) Count 3.65 mill/uL (4.20-5.40); White Blood Cell (WBC) Count 13.1 thou/uL (4.8-10.8)
[2021-01-25 20:29] LABS: BHCG - Serum Negative (NEGATIVE); Pregs Control Background? CLEAR/WHITE (CLR/WHITE); Pregs Control Bar Appear? YES (CONTROL BAR)
[2021-01-25 20:33] LABS: ALT (SGPT) 13 U/L (8-55); AST (SGOT) 16 U/L (5-34); Albumin 3.6 g/dL (3.5-5.0); Alkaline Phosphatase 71 U/L (40-110); Anion Gap 13 mmol/L (10-20); BUN (Urea Nitrogen) 11 mg/dL (7.0-18.7); Bilirubin, Total 0.5 mg/dL (0.2-1.2); Calc. Creatinine Clearance 0 mL/min (70-130); Carbon Dioxide 22 mmol/L (22-29); Chloride 105 mmol/L (98-107); Globulin 3.4 g/dL (2.4-3.5); Glucose 101 mg/dL (70-105); Potassium 3.6 mmol/L (3.5-5.1); Sodium 136 mmol/L (136-145)
[2021-01-25] MEDS ORDERED: Acetaminophen 500 MG TAB ONE (20:58)
[2021-01-25] MEDS ORDERED: Dexamethasone 10 MG/ML VIAL ONE (20:58)
== END 2021-01-25 22:54 | disposition home or self-care (01) ==
LOC: ERS 19:33
DX: J18.9 Pneumonia, unspecified organism (principal); Z20.822 Contact with and (suspected) exposure to COVID-19; D64.9 Anemia, unspecified; F17.210 Nicotine dependence, cigarettes, uncomplicated
CPT/HCPCS: 71045; 80053; 84703; 85025; 93005; 96374; J1100

== ENCOUNTER 2021-03-28 08:52 | Emergency (ER) | payer SELFPAY ==
[2021-03-28 09:53] LABS: #Basophils 0.1 thou/uL (0.0-0.2); #Eosinphils 0.1 thou/uL (0.0-0.7); #Lymphocytes 2.3 thou/uL (1.20-3.40); #Monocytes 0.5 thou/uL (0.11-0.59); #Neutrophils 4.3 thou/uL (1.40-6.50); %Basophils 1.1 % (0.0-1.0); %Eosinophils 0.9 % (0.0-10.0); %Lymphocytes 32.1 % (21.0-51.0); %Monocytes 7.4 % (0.0-10.0); %Neutrophils 58.6 % (42.0-75.0); Hemoglobin 10.8 g/dL (12.0-16.0); Mean Corpuscular HGB CONC 35.8 g/dL (32.0-36.0); Mean Corpuscular Hemoglobin 31.7 pg (27.0-31.0); Mean Corpuscular Volume 88.5 fL (78.0-98.0); Mean Platelet Volume 7.9 fL (7.4-10.4); Platelet Count 186 thou/uL (130-400); RBC Distribution Width 14.2 % (11.5-14.5); Red Blood Cell (RBC) Count 3.41 mill/uL (4.20-5.40); White Blood Cell (WBC) Count 7.3 thou/uL (4.8-10.8)
[2021-03-28] MEDS ORDERED: Ondansetron PF 4 MG/2 ML Vial ONE (09:53)
[2021-03-28 09:55] LABS: BHCG - Serum POSITIVE (NEGATIVE); Pregs Control Background? CLEAR/WHITE (CLR/WHITE); Pregs Control Bar Appear? YES (CONTROL BAR)
[2021-03-28 10:08] LABS: ALT (SGPT) 25 U/L (8-55); AST (SGOT) 18 U/L (5-34); Albumin 3.8 g/dL (3.5-5.0); Alkaline Phosphatase 57 U/L (40-110); Anion Gap 13 mmol/L (10-20); BUN (Urea Nitrogen) 8 mg/dL (7.0-18.7); Calc. Creatinine Clearance 0 mL/min (70-130); Carbon Dioxide 18 mmol/L (22-29); Chloride 107 mmol/L (98-107); Globulin 2.6 g/dL (2.4-3.5); Glucose 79 mg/dL (70-105); Potassium 3.9 mmol/L (3.5-5.1); Protein, Total 6.4 g/dL (6.0-8.3); Sodium 134 mmol/L (136-145)
[2021-03-28] MEDS ORDERED: Acetaminophen 500 MG TAB ONE (11:13)
== END 2021-03-28 11:15 | disposition home or self-care (01) ==
LOC: ERS 08:52
DX: O99.511 Diseases of the respiratory system complicating pregnancy, first trimester (principal); J02.9 Acute pharyngitis, unspecified; O99.331 Smoking (tobacco) complicating pregnancy, first trimester; F17.210 Nicotine dependence, cigarettes, uncomplicated; O99.011 Anemia complicating pregnancy, first trimester
CPT/HCPCS: 71045; 80053; 84484; 84703; 85025; 93005; 96374; J2405

== ENCOUNTER 2023-07-14 19:35 | Emergency (ER) | payer OTHER, SELFPAY ==
[2023-07-14 20:49] LABS: #Basophils 0.1 thou/uL (0.0-0.2); #Eosinphils 0.1 thou/uL (0.0-0.7); #Monocytes 0.7 thou/uL (0.11-0.59); #Neutrophils 9.9 thou/uL (1.40-6.50); %Basophils 0.5 % (0.0-1.0); %Eosinophils 0.6 % (0.0-10.0); %Lymphocytes 13.4 % (21.0-51.0); %Monocytes 5.6 % (0.0-10.0); %Neutrophils 79.6 % (42.0-75.0); Hematocrit 31.5 % (36.0-47.0); Hemoglobin 10.5 g/dL (12.0-16.0); Mean Corpuscular HGB CONC 33.3 g/dL (32.0-36.0); Mean Corpuscular Hemoglobin 29.2 pg (27.0-31.0); Mean Corpuscular Volume 87.7 fl (78.0-98.0); Mean Platelet Volume 9.9 fL (7.4-10.4); Platelet Count 320 10x3/uL (130-400); RBC Distribution Width 13.9 % (11.5-14.5); Red Blood Cell (RBC) Count 3.59 mill/uL (4.20-5.40); White Blood Cell (WBC) Count 12.4 10x3/uL (4.8-10.8)
[2023-07-14 20:56] LABS: BHCG - Serum Negative (NEGATIVE); Pregs Control Background? CLEAR/WHITE (CLR/WHITE); Pregs Control Bar Appear? YES (CONTROL BAR)
[2023-07-14 21:06] LABS: Bacteria/HPF 2+ HPF (None Seen); Bilirubin Negative (Negative); Blood, Urine Negative (Negative); CAUTI Indications for Culture Pelvic or flank pain; Clarity Turbid (Clear); Glucose, Urine (Dipstick) Normal (Negative); Ketone, Urine Negative (Negative); Leukocyte 500 Leu/uL (Negative); Mucous/LPF Rare LPF (<2+); Nitrite Negative (Negative); Protein, Urine (Dipstick) 50 mg/dL (Neg-Trace); Specific Gravity, Urine 1.033 (1.002-1.036); Urobilinogen 3 mg/dL (Less than 2); WBC/HPF Greater than 50 HPF (0-3)
[2023-07-14 21:08] LABS: Urine Culture Reflex Yes Yes
[2023-07-14 21:16] LABS: ALT (SGPT) 20 U/L (8-55); AST (SGOT) 20 U/L (5-34); Alkaline Phosphatase 87 U/L (40-110); Anion Gap 14 mmol/L (10-20); BUN (Urea Nitrogen) 10 mg/dL (7.0-18.7); Bilirubin, Total 0.2 mg/dL (0.2-1.2); Calc. Creatinine Clearance 0 mL/min (70-130); Calcium 9.5 mg/dL (7.8-10.44); Carbon Dioxide 22 mmol/L (22-29); Chloride 105 mmol/L (98-107); Estimated GFR 118; Globulin 3.1 g/dL (2.4-3.5); Glucose 104 mg/dL (70-105); Lipase 18 U/L (8-78); Potassium 3.5 mmol/L (3.5-5.1); Protein, Total 7.1 g/dL (6.0-8.3); Sodium 137 mmol/L (136-145)
[2023-07-14 21:23] LABS: Troponin I Less than 0.010 ng/mL (< 0.028)
[2023-07-14] MEDS ORDERED: Acetaminophen 500 MG TAB ONE (21:34)
[2023-07-14] MEDS ORDERED: cefTRIAXone (ROCEPHIN) 1 GM VIAL ONE (22:40)
[2023-07-14] MEDS ORDERED: Lidocaine 1% PF 5 ML VIAL ONE (22:41)
== END 2023-07-14 22:53 | disposition home or self-care (01) ==
LOC: ERS 19:35
DX: J18.9 Pneumonia, unspecified organism (principal); N39.0 Urinary tract infection, site not specified; F17.210 Nicotine dependence, cigarettes, uncomplicated
CPT/HCPCS: 71045; 80053; 81001; 83690; 84484; 84703; 85025; 87077; 87086; 93005; J0696

== ENCOUNTER 2025-04-30 04:36 | Emergency (ER) | payer SELFPAY ==
[2025-04-30] MEDS ORDERED: Acetaminophen 500 MG TAB ONE (05:06)
[2025-04-30 05:08] LABS: #Basophils Less than 0.03 10x3/uL (0.0-0.2); #Eosinophils 0.11 10x3/uL (0.0-0.7); #Monocytes 0.63 10x3/uL (0.11-0.59); #Neutrophils 5.78 10x3/uL (1.40-6.50); %Basophils 0.2 % (0.0-1.0); %Eosinophils 1.2 % (0.0-10.0); %Lymphocytes 25.5 % (21.0-51.0); %Monocytes 7.1 % (0.0-10.0); %Neutrophils 65.4 % (42.0-75.0); Hematocrit 29.3 % (36.0-47.0); Hemoglobin 10.2 g/dL (12.0-16.0); Mean Corpuscular Hemoglobin 31.0 pg (27.0-31.0); Mean Corpuscular Volume 89.1 fL (78.0-98.0); Platelet Count 186 10x3/uL (130-400); Red Blood Cell (RBC) Count 3.29 mill/uL (4.20-5.40); White Blood Cell (WBC) Count 8.84 10x3/uL (4.8-10.8)
[2025-04-30 05:18] LABS: Bacteria/HPF None Seen HPF (None Seen); CAUTI Indications for Culture Dysuria,urgency,freq; Glucose, Urine (Dipstick) Normal (Negative); Leukocyte 500 Leu/uL (Negative); Protein, Urine (Dipstick) Negative (Neg-Trace); RBC/HPF None Seen HPF (0-3); Specific Gravity, Urine 1.004 (1.002-1.036)
[2025-04-30 05:22] LABS: Anion Gap 13 mmol/L (10-20); BHCG - Serum POSITIVE (NEGATIVE); BUN (Urea Nitrogen) 9 mg/dL (7.0-18.7); Calc. Creatinine Clearance 0 mL/min (70-130); Calcium 9.0 mg/dL (7.8-10.44); Carbon Dioxide 21 mmol/L (22-29); Chloride 105 mmol/L (98-107); Glucose 95 mg/dL (70-105); Potassium 3.8 mmol/L (3.5-5.1); Pregs Control Background? CLEAR/WHITE (CLR/WHITE); Pregs Control Bar Appear? YES (CONTROL BAR); Sodium 135 mmol/L (136-145)
[2025-04-30 05:24] LABS: Urine Culture Reflex Yes Yes
[2025-04-30] MEDS ORDERED: cefTRIAXone (ROCEPHIN) 1 GM VIAL ONE (05:44)
[2025-04-30 06:23] LABS: ALT (SGPT) 8 U/L (Less than 34); AST (SGOT) 18 U/L (11-34); Albumin 3.0 g/dL (3.1-4.5); Alkaline Phosphatase 127 U/L (40-110); Bilirubin, Direct 0.1 mg/dL (0.1-0.3); Bilirubin, Total 0.3 mg/dL (0.3-1.2)
== END 2025-04-30 06:53 | disposition home or self-care (01) ==
LOC: ERS 04:36
DX: O23.42 Unspecified infection of urinary tract in pregnancy, second trimester (principal); N39.0 Urinary tract infection, site not specified; Z3A.28 28 weeks gestation of pregnancy
CPT/HCPCS: 76705; 80048; 80076; 81001; 84703; 85025; 87086; 96365; J0696